=== PATIENT | female | born 1940 | race Caucasian/White ===

== ENCOUNTER 2018-03-31 20:00 | Inpatient (IN) | payer MEDICARE, MEDICAID ==
[~2018-03-31] VITALS: Ht 167.6 cm; Wt 78.0 kg
--- NOTE | 2018-03-31 20:25 | NUR ---
77 yo female bib ambulance from [facility]. patient is alert to self, patient was ds to er bed. patient gowned, placed on desk monitor. skin warm and dry, resp even and unlabored. per ems, patient was sent to [facility] ED for poor appitite and loss of weight over the past few days. awaiting orders from provider, will continue to monitor
--- NOTE | 2018-03-31 20:30 | NUR ---
20g right upper arm started, medicated pt as ordered
[2018-03-31 20:48] LABS: BASOPHILS # (AUTO) 0.3 /CMM (0.0-0.2); BASOPHILS % (AUTO) 2.7 % (0.0-2.0); HEMATOCRIT 36 % (33-45); HEMOGLOBIN 11.7 g/dL (11.5-14.8); LYMPHOCYTES # (AUTO) 3.2 /CMM (0.8-4.8); LYMPHOCYTES % (AUTO) 27.2 % (20.0-44.0); MEAN CORPUSCULAR HEMOGLOBIN 28 PG (26.0-33.0); MEAN CORPUSCULAR HGB CONC 33 g/dl (31.0-36.0); MEAN CORPUSCULAR VOLUME 86 fL (82-100); MONOCYTES # (AUTO) 0.7 /CMM (0.1-1.30); MONOCYTES % (AUTO) 5.8 % (2.0-12.0); NEUTROPHILS # (AUTO) 7.1 /CMM (1.8-8.9); NEUTROPHILS % (AUTO) 59.3 % (43.0-81.0); PLATELET COUNT (AUTO) 295 /CMM (150-450); RDW COEFFICIENT OF VARIATION 16.7 (11.5-15.0); RED BLOOD CELL COUNT(AUTO) 4.12 MIL/uL (4.0-5.2); WHITE BLOOD COUNT (AUTO) 11.9 K/uL (4.3-11.0)
[2018-03-31 20:59] LABS: CALCIUM, SERUM 9.1 mg/dL (8.5-10.1); CARBON DIOXIDE 27 mmol/L (21-32); CHLORIDE 104 mmol/L (98-107); GLUCOSE 137 mg/dL (74-106); POTASSIUM 4.8 mmol/L (3.5-5.1); SODIUM SERUM 137 mmol/L (136-145); UREA NITROGEN, BLOOD 36 mg/dL (7-18)
[2018-03-31 21:04] LABS: ALANINE AMINOTRANSFERASE 15 U/L (12-78); ALBUMIN 2.7 g/dL (3.4-5.0); ALKALINE PHOSPHATASE 70 U/L (46-116); ASPARTATE AMINOTRANSFERASE 13 U/L (15-37); BILIRUBIN,DIRECT 0.1 mg/dL (0.0-0.2); BILIRUBIN,TOTAL 0.2 mg/dL (0.2-1.0); LIPASE 183 U/L (73-393); TOTAL PROTEIN, SERUM 6.3 g/dL (6.4-8.2)
[2018-03-31 21:09] LABS: INR 0.99 (0.85-1.15)
--- NOTE | 2018-03-31 21:12 | NUR ---
PT ASSIGNED M/S 117-2
[2018-03-31 21:13] LABS: APPEARANCE,URINE SL CLOUDY (CLEAR); BILIRUBIN,URINE NEGATIVE (NEGATIVE); BLOOD, URINE 3+ Ery/uL (NEGATIVE); COLOR,URINE YELLOW (YELLOW); KETONES,URINE NEGATIVE (NEGATIVE); LEUKOCYTE ESTERASE ,URINE 2+ (NEGATIVE); NITRITE, URINE POSITIVE (NEGATIVE); PROTEIN,URINE 3+ mg/dl (NEGATIVE); UGLUCOSE NEGATIVE (NEGATIVE)
[2018-03-31 21:14] LABS: PH,URINE >9.0 (5.0-8.0)
--- NOTE | 2018-03-31 21:21 | NUR ---
CALLED [facility] FOR READ ON CHEST X-RAY. PER HOTLINE READ IS PENDING RESULT
[2018-03-31 21:27] LABS: BACTERIA,URINE Many /HPF (None Seen); RBC,URINE TOO NUMEROUS TO COUN /HPF (0-2); SQUAMOUS EPITHELIAL CELL,UR Moderate /HPF (None Seen)
[2018-03-31] MEDS ORDERED: IV NS 0.9% 1,000 ML BAG IV ONE (21:30)
[2018-03-31] MEDS ORDERED: PIPERACILLIN /TAZOBACTAM 3.375 G in IV D5W 50 ML IV ONE (21:30)
[2018-03-31] MEDS ORDERED: PIPERACILLIN /TAZOBACTAM 3.375 G VIAL IV ONE (21:32)
[2018-03-31] MEDS ORDERED: ACETAMINOPHEN 325 MG TABLET PO PRN (22:00)
[2018-03-31] MEDS ORDERED: MAG HYDROX/AL HYDROX/SIMETH 30 ML UDC PO PRN (22:00)
[2018-03-31] MEDS ORDERED: Z GUARD REMEDY 2 OZ OINT TP PRN (22:00)
[2018-03-31] MEDS ORDERED: ONDANSETRON HCL/PF 4 MG/2 ML VIAL IVP PRN (22:00)
[2018-03-31] MEDS ORDERED: MAGNESIUM HYDROXIDE 30 ML UDC PO PRN (22:00)
[2018-03-31] MEDS ORDERED: ZOLPIDEM TARTRATE 5 MG TABLET PO PRN (22:00)
[2018-03-31 22:10] VITALS: BP 147/60
[2018-03-31] MEDS: IV NS 0.9% 1,000 ML IV PRN (22:22)
--- NOTE | 2018-03-31 22:22 | NUR ---
tranasported pt to ms bed with emt without incident
--- NOTE | 2018-03-31 22:30 | NUR ---
RN NOTE RECEIVED PATIENT FROM ER VIA GURNEY, AWAKE, ORIENTED TO NAME ONLY, CONFUSED, LETHARGIC, DX ALOC, DR AGUILERA IS BY BEDSIDE, NOTIFIED DR AGUILERA THAT PATIENT HAS RASH THROUGHOUT THE BODY, DR AGUILERA STATED" I AM AWARE, I KNOW PATIENT FROM THE FACILITY, NO NEW ORDERS GIVEN AT THIS TIME", ON ROOM AIR, SO2 96%, NO RESPIRATORY DISTRESS NOTED, SINUS RYTHM ON THE MONITOR, NO PAIN OR DISCOMFORT NOTED, UNABLE TO AMBULATE, LEFT HAND 18 GAUGE NOTED, WITH ONGOING IF FLUIDS FROM ER, BED BATH PROVIDED, SKIN PICTURES TAKEN AND PLACED IN THE CHART, ALL SAFETY MEASURES TAKEN, BED IN THE LOWEST POSITION, CALL LIGHT WITHIN REACH, BED ALARM IS ACTIVATED, WILL CONTINUE TO MONITOR PATIENT
[2018-04-01] VITALS (8 sets, daily range): BP systolic 148–186; BP diastolic 49–82
[2018-04-01] MEDS: LORAZEPAM INJ 2 MG/ML VIAL IV PRN (01:15)
--- NOTE | 2018-04-01 01:20 | NUR ---
RN NOTE EPISODES OF AGITATION NOTED, HOWEVER PATIENT IS CONFUSED AND NOT ABLE TO EXPLAIN, NOTIFIED DR AGUILERA INPUT NEW OF ATIVAN, ORDER WAS CARRIED OUT, WILL CONTINUE TO MONITOR PATIENT
[2018-04-01] MEDS ORDERED: ACET325T53 PO (02:11)
[2018-04-01] MEDS ORDERED: LACT1CAP61 PO (02:40)
[2018-04-01] MEDS ORDERED: ATOR40TA PO (02:40)
[2018-04-01] MEDS ORDERED: LOSA50TA21 PO (02:41)
[2018-04-01] MEDS ORDERED: DONE5TAB34 PO (02:41)
[2018-04-01] MEDS ORDERED: CYAN1TAB17 PO (02:41)
[2018-04-01] MEDS ORDERED: DOCU250C14 PO (02:41)
[2018-04-01] MEDS ORDERED: CLON0.5T12 PO (02:41)
[2018-04-01] MEDS ORDERED: ERGO500040 PO (02:41)
[2018-04-01] MEDS ORDERED: LEVO125T8 PO (02:41)
[2018-04-01] MEDS ORDERED: NEOM28.43 TP (03:16)
[2018-04-01] MEDS ORDERED: MULT1TAB73 PO (03:16)
[2018-04-01] MEDS ORDERED: VALP250S3 PO (03:16)
[2018-04-01] MEDS ORDERED: METF10004 PO (03:16)
[2018-04-01] MEDS ORDERED: NYST5ORA TOP (03:16)
[2018-04-01] MEDS ORDERED: MAG30ORA PO (03:16)
[2018-04-01] MEDS ORDERED: TRAZ-182 PO (03:16)
[2018-04-01] MEDS ORDERED: POLY17PO4 PO (03:16)
[2018-04-01] MEDS ORDERED: THIA100T70 PO (03:16)
[2018-04-01] MEDS ORDERED: RISP1SOL5 PO (03:16)
[2018-04-01] MEDS ORDERED: MAGN400O6 PO (03:16)
[2018-04-01 06:23] LABS: BASOPHILS % (AUTO) 0.5 % (0.0-2.0); EOSINOPHILS % (AUTO) 6.4 % (0.0-6.0); HEMATOCRIT 35 % (33-45); HEMOGLOBIN 11.3 g/dL (11.5-14.8); LYMPHOCYTES # (AUTO) 2.5 /CMM (0.8-4.8); LYMPHOCYTES % (AUTO) 25.3 % (20.0-44.0); MEAN CORPUSCULAR HEMOGLOBIN 29 PG (26.0-33.0); MEAN CORPUSCULAR HGB CONC 32 g/dl (31.0-36.0); MEAN CORPUSCULAR VOLUME 89 fL (82-100); MONOCYTES # (AUTO) 0.6 /CMM (0.1-1.30); MONOCYTES % (AUTO) 5.6 % (2.0-12.0); NEUTROPHILS # (AUTO) 6.1 /CMM (1.8-8.9); NEUTROPHILS % (AUTO) 62.2 % (43.0-81.0); PLATELET COUNT (AUTO) 293 /CMM (150-450); RDW COEFFICIENT OF VARIATION 17.8 (11.5-15.0); RED BLOOD CELL COUNT(AUTO) 3.95 MIL/uL (4.0-5.2); WHITE BLOOD COUNT (AUTO) 9.9 K/uL (4.3-11.0)
[2018-04-01 06:51] LABS: CALCIUM, SERUM 8.2 mg/dL (8.5-10.1); CARBON DIOXIDE 26 mmol/L (21-32); CHLORIDE 107 mmol/L (98-107); CREATININE 0.8 mg/dL (0.6-1.3); GLUCOSE 142 mg/dL (74-106); SODIUM SERUM 141 mmol/L (136-145); UREA NITROGEN, BLOOD 28 mg/dL (7-18)
[2018-04-01 06:57] LABS: MAGNESIUM 1.1 mg/dL (1.8-2.4)
--- NOTE | 2018-04-01 07:00 | NUR ---
RN NOTE CRITICAL LAB VALUE MG 1.1, NOTIFIED DR AGUILERA, AWAITING FOR CALL BACK, WILL ENDORSE TO AM SHIFT TO FOLLOW UP
--- NOTE | 2018-04-01 07:12 | NUR ---
RN NOTE DR AGUILERA CALLED BACK, NEW ORDER OF MG 2G IV GIVEN, WILL ENDORSE TO AVNI TORRES TO CONTINUE PLAN OF CARE
[2018-04-01] MEDS ORDERED: Magnesium 1 GM/2 ML VIAL IV ONE (07:30)
--- NOTE | 2018-04-01 07:30 | NUR ---
PRODUCTION TEAM MANAGER NOTE: RECEIVED PATIENT IN BED, ASLEEP BUT REFUSED TO OPEN HER EYES AND DOES NOT FOLLOW COMMANDS AT THIS TIME. PATIENT WAS INTERMITTENTLY TALKING TO HERSELF. ON SHINGLE CARRIER SR HR= 61. RESPIRATION IS EVEN AND UNLABORED. SATURATING 95% IN ROOM AIR. NO FACIAL GRIMACING. HOB ELEVATED. BED ALARMED AND LOCKED AT ALL TIMES. CALL LIGHT WITHIN REACH. NEEDS ANTICIPATED.
[2018-04-01] MEDS: Magnesium 1GM/D5W 100ML PREMIX 100 ML IV SCH ×4 (08:07→14:52)
[2018-04-01] MEDS ORDERED: CYAN100096 PO (08:15)
[2018-04-01] MEDS ORDERED: NA P133E RC (08:15)
[2018-04-01] MEDS ORDERED: NYST15OI TP (08:15)
[2018-04-01] MEDS ORDERED: NA PHOS,M-B/NA PHOS,DI-BA 1 EA ENEMA RC PRN (10:30)
[2018-04-01] MEDS: CEFTRIAXONE 1 G in IV NS 0.9% 50 ML IV SCH (10:44)
[2018-04-01] MEDS ORDERED: VALPROIC ACID 250 MG/5 ML UDC PO SCH ×2 (10:52→17:00)
[2018-04-01 11:25] LABS: VALPROIC ACID < 3 ug/mL (50-100)
[2018-04-01 11:27] LABS: SERUM AMMONIA < 10 umol/L (11-32)
[2018-04-01] MEDS ORDERED: *INSULIN REGULAR(HUMULIN R)HUM 100 UNIT/ML VIAL SQ PRN (11:30)
[2018-04-01] MEDS ORDERED: DEXTROSE 50%-WATER 50 ML DISP.SYRIN IV PRN (11:30)
[2018-04-01] MEDS: LACTOBACILLUS RHAMNOSUS GG 1 EACH CAP.SPRINK PO SCH ×3 (11:34→17:38)
[2018-04-01] MEDS: BLOOD SUGAR DIAGNOSTIC 1 EACH STRIP VI SCH ×3 (11:35→21:16)
[2018-04-01] MEDS: CYANOCOBALAMIN 500 MCG TABLET PO SCH (11:35)
[2018-04-01] MEDS: THIAMINE HCL 100 MG TABLET PO SCH (11:35)
[2018-04-01] MEDS: INSULIN REGULAR, HUMAN 100 UNIT/ML 3 ML VIAL SQ PRN (12:57)
[2018-04-01] MEDS ORDERED: ACETAMINOPHEN 325 MG TABLET PO SCH (13:00)
[2018-04-01] MEDS: OLANZAPINE 2.5 MG TABLET PO SCH ×2 (17:00→17:38)
[2018-04-01] MEDS ORDERED: risperiDONE LIQUID 1 MG/ML ML PO SCH (17:00)
[2018-04-01] MEDS: clonazePAM 0.5 MG TABLET PO SCH ×2 (17:00→17:38)
[2018-04-01] MEDS: DONEPEZIL 5 MG TABLET PO SCH ×2 (17:00→17:38)
[2018-04-01] MEDS: METFORMIN 500 MG TABLET PO SCH ×2 (17:00→17:38)
[2018-04-01] MEDS: DIVALPROEX SODIUM 125 MG CAP.SPRINK PO SCH ×2 (17:30→17:38)
[2018-04-01] MEDS: NYSTATIN OINT 100000 UNIT/G 15 GM TUBE TP SCH (17:38)
[2018-04-01] MEDS: HYDROCORTISONE OINT 1% 28.35 GM TUBE TP SCH (17:39)
--- NOTE | 2018-04-01 17:48 | NUR ---
[place] OPERATOR NOTE: PATIENT REFUSED TO TAKE HER AFTERNOON MEDICATIONS, INITIALLY SHE TASTED IT, BUT EVENTUALLY PATIENT SPIT OUT THE MEDICATIONS. OFFERED 3X, EXPLAINED RISKS AND BENEFITS, BUT PATIENT STRONGLY REFUSED AND YELLED AT THE NURSE. Addendum: 04/01/18 at 1750 by NATALIIA MADRIGAL RN INFORMED DR. PEÑA ABOUT IT.
[2018-04-01] MEDS: IV NS 0.9% 1,000 ML IV PRN (18:00)
--- NOTE | 2018-04-01 18:30 | NUR ---
METAL PRODUCTS FABRICATOR ASSEMBLER NOTE: PER DR. PEÑA THE PATIENT NEEDED TO HAVE MEDICAL CLEARANCE IN ORDER TO BE TRANSFER TO [facility] FOR FURTHER BEHAVIORAL MANAGEMENT. AT THIS TIME, MD HAS NO NEW ORDER AND WILL CHECK ON THE PATIENT AGAIN BY TOMORROW.
[2018-04-01] MEDS: ATORVASTATIN 40 MG TABLET PO SCH ×2 (21:16→21:25)
[2018-04-01] MEDS ORDERED: MAGNESIUM HYDROXIDE 30 ML UDC PO SCH (22:00)
[2018-04-01] MEDS ORDERED: TRAZODONE 50 MG TABLET PO SCH (22:00)
[2018-04-01] MEDS ORDERED: MAG HYDROX/AL HYDROX/SIMETH 30 ML UDC PO SCH (22:00)
[2018-04-02] VITALS (9 sets, daily range): BP systolic 142–182; BP diastolic 43–80
[2018-04-02] MEDS: IV NS 0.9% 1,000 ML IV PRN ×2 (06:38→21:06)
--- NOTE | 2018-04-02 06:45 | NUR ---
WOUND CARE CONSULT WOUND CARE RECEIVED CONSULT FOR RASHES ALL OVER THE BODY. WOUND CARE WILL DEFER CONSULT AND ALL TREATMENT PLANS TO SURGICAL TEAM WHO ARE CURRENTLY FOLLOWING. PATIENT WITH ROBY AT 12, RECOMMEND ISOFLEX LOW AIRLOSS SPECIALTY BED, NURSING WILL PLACE WHEN AVAILABLE IN THE UNIT. ALL PRESSURE ULCER PREVENTION MEASURES ARE NOTED TO BE IN PLACE. WILL SEE PRN.
[2018-04-02] MEDS: BLOOD SUGAR DIAGNOSTIC 1 EACH STRIP VI SCH ×4 (06:47→21:04)
--- NOTE | 2018-04-02 06:56 | NUR ---
RN CLOSING NOTE PATIENT WITH NO ACUTE CHANGE IN CONDITION OBSERVED OVERNIGHT. PATIENT IS DEMENTED WITH PSYCHOSIS PRESENTATION, MUMBLES TO SELF AND PERIODICALLY WOULD BE PLEASANT WITH STAFF AND SNAPS TO BEING AGITATED AND COMBATIVE. PATIENT STILL NOTED WITH EPISODE OF AGITATION, NONCOMPLIANCE WITH MEDICATION AND CARE. PATIENT REQUIRING CONSTANT REORIENTATION. PATIENT TURNED AND REPOSITIONED. IVF ORDERED. WOUND TREATMENT ORDERED. NEEDS ANTICIPATED AND MET. SAFETY AND COMFORT ENSURED. BED ALARM IN PLACE. WILL ENDORSE ACCORDINGLY FOR CONTINUITY OF CARE.
[2018-04-02] MEDS: LEVOTHYROXINE SODIUM 125 MCG TABLET PO SCH (07:30)
--- NOTE | 2018-04-02 07:40 | NUR ---
ASSEMBLER CAMPER OPENING NOTE: RECEIVED PATIENT IN BED, ASLEEP BUT REFUSED TO OPEN HER EYES AND DOES NOT FOLLOW COMMANDS AT THIS TIME. PATIENT WAS INTERMITTENTLY TALKING TO HERSELF. ON BUSINESS MANAGEMENT ANALYST SB 51. RESPIRATION IS EVEN AND UNLABORED. NO FACIAL GRIMACING. HOB ELEVATED. BED VIANEY AND IN LOW POSITION.SRX3. CALL LIGHT WITHIN REACH. WILL CONTINUE TO MONITOR.
[2018-04-02] MEDS: DIVALPROEX SODIUM 125 MG CAP.SPRINK PO SCH ×2 (08:32→18:13)
[2018-04-02] MEDS: clonazePAM 0.5 MG TABLET PO SCH ×2 (08:32→18:13)
[2018-04-02] MEDS: OLANZAPINE 2.5 MG TABLET PO SCH (08:32)
[2018-04-02] MEDS: METFORMIN 500 MG TABLET PO SCH ×2 (08:33→17:00)
[2018-04-02] MEDS: THIAMINE HCL 100 MG TABLET PO SCH (08:33)
[2018-04-02] MEDS: LOSARTAN POTASSIUM 50 MG TABLET PO SCH (08:33)
[2018-04-02] MEDS: DONEPEZIL 5 MG TABLET PO SCH ×2 (08:33→18:13)
[2018-04-02] MEDS: NYSTATIN OINT 100000 UNIT/G 15 GM TUBE TP SCH ×2 (08:34→18:14)
[2018-04-02] MEDS: HYDROCORTISONE OINT 1% 28.35 GM TUBE TP SCH ×2 (08:34→18:14)
[2018-04-02] MEDS: CYANOCOBALAMIN 500 MCG TABLET PO SCH (08:43)
[2018-04-02] MEDS: MULTIVITAMINS,THERAGRAN 1 UDTAB TABLET PO SCH (08:43)
[2018-04-02] MEDS: POLYETHYLENE GLYCOL 3350 17 GM POWD.PACK PO SCH (08:43)
[2018-04-02] MEDS: LACTOBACILLUS RHAMNOSUS GG 1 EACH CAP.SPRINK PO SCH ×2 (08:44→17:00)
[2018-04-02] MEDS: DOCUSATE SODIUM LIQ 100 MG/10 ML UDC PO SCH (08:46)
[2018-04-02] MEDS ORDERED: DOCUSATE SODIUM 250 MG CAPSULE PO SCH (09:00)
--- NOTE | 2018-04-02 09:30 | NUR ---
DEICER TESTER NOTES PATIENT REFUSED MEDICATIONS,BUT ABLE TO TAKE SOME.BITING ON THE SPOON,TRYING TO HIT AND BITE WHILE FEEDING AND GIVING MEDS.YELLING AGAINST STAFF.WILL CONTINUE TO MONITOR.
[2018-04-02] MEDS: CEFTRIAXONE 1 G in IV NS 0.9% 50 ML IV SCH (10:19)
--- NOTE | 2018-04-02 16:00 | NUR ---
RN NOTES SEEN BY ,MADE AWARE THAT PATIENT REFUSED BREAKFAST,LUNCH AND DINNER.ONLY EAT 10%.REFUSING MEDICATIONS TOO.AND ALSO MADE AWARE ABOUT BEHAVIOR OF YELLING AND TRYING TO HIT AND SCRATCH WHILE TOUCHING THE PATIENT.SHE SAID SHE WILL CHANGE MEDICATION ROUTE AND WILL FOLLOW UP.CONTINUE TO MONITOR.
--- NOTE | 2018-04-02 19:51 | NUR ---
RN OPENING NOTES RECEIVED REPORT FROM YOLY HOLLY. PATIENT A/A/O X1 W/ CONFUSION. BREATHING EVEN & UNLABORED & TOLERATING ROOM AIR. ON TELE W/ SINUS LEIAS, HR 55. NO RESPIRATORY OR CARDIAC DISTRESS NOTED. LEFT HAND IV #18 INTACT & PATENT W/ DRESSING CDI & IVF NS INFUSING WELL @ 75 ML/HR. NO S/S OF PAIN OR DISCOMFORT @ THIS TIME. SAFETY MEASURES MAINTAINED W/ BED ALARM ON. TURNED & REPOSITIONED FOR COMFORT. WILL CONTINUE TO MONITOR.
[2018-04-02] MEDS ORDERED: OLANZAPINE 5 MG/TAB.RAPDIS PO SCH (20:00)
[2018-04-02] MEDS: ATORVASTATIN 40 MG TABLET PO SCH (21:04)
[2018-04-03] VITALS (8 sets, daily range): BP systolic 145–190; BP diastolic 40–68
--- NOTE | 2018-04-03 07:10 | NUR ---
LEASE OPERATOR OPENING NOTE: RECEIVED PATIENT IN BED, ASLEEP BUT REFUSED TO OPEN HER EYES AND DOES NOT FOLLOW COMMANDS AT THIS TIME. ON MEDICAL FIELD REPRESENTATIVE SB 58. RESPIRATION IS EVEN AND UNLABORED. NO FACIAL GRIMACING. HOB ELEVATED. BED VIANEY AND IN LOW POSITION.SRX3. CALL LIGHT WITHIN REACH. WILL CONTINUE TO MONITOR.
[2018-04-03] MEDS: BLOOD SUGAR DIAGNOSTIC 1 EACH STRIP VI SCH ×4 (08:12→21:05)
[2018-04-03] MEDS: LACTOBACILLUS RHAMNOSUS GG 1 EACH CAP.SPRINK PO SCH ×2 (08:21→16:52)
[2018-04-03] MEDS: DIVALPROEX SODIUM 125 MG CAP.SPRINK PO SCH ×2 (08:21→16:52)
[2018-04-03] MEDS: METFORMIN 500 MG TABLET PO SCH ×2 (08:21→16:52)
[2018-04-03] MEDS: clonazePAM 0.5 MG TABLET PO SCH ×2 (08:21→16:53)
[2018-04-03] MEDS: THIAMINE HCL 100 MG TABLET PO SCH (08:21)
[2018-04-03] MEDS: LEVOTHYROXINE SODIUM 125 MCG TABLET PO SCH (08:21)
[2018-04-03] MEDS: DONEPEZIL 5 MG TABLET PO SCH ×2 (08:21→16:53)
[2018-04-03] MEDS: MULTIVITAMINS,THERAGRAN 1 UDTAB TABLET PO SCH (08:21)
[2018-04-03] MEDS: CYANOCOBALAMIN 500 MCG TABLET PO SCH (08:24)
[2018-04-03] MEDS: LOSARTAN POTASSIUM 50 MG TABLET PO SCH (08:25)
[2018-04-03] MEDS: HYDROCORTISONE OINT 1% 28.35 GM TUBE TP SCH ×2 (08:27→16:55)
[2018-04-03] MEDS: NYSTATIN OINT 100000 UNIT/G 15 GM TUBE TP SCH ×2 (08:27→16:55)
[2018-04-03] MEDS: DOCUSATE SODIUM LIQ 100 MG/10 ML UDC PO SCH (08:40)
[2018-04-03] MEDS: POLYETHYLENE GLYCOL 3350 17 GM POWD.PACK PO SCH (08:40)
[2018-04-03] MEDS ORDERED: CLONIDINE HCL 0.1MG/24H PTWK 1 EA PATCH TD SCH (09:30)
--- NOTE | 2018-04-03 09:30 | NUR ---
MANAGER STAFFING NOTES SEEN BY ,MADE AWARE ABOUT PATIENT EATING PATTERN AND ELEVATED BLOOD PRESSURE GOT NEW ORDERS.ALSO MADE AWARE THAT LABS NOT DONE FOR PREVIOUS DAYS,ON IV ATB FOR UTI.GOT NEW LAB ORDERS FOR 04/04/18.WILL CONTINUE TO MONITOR.
[2018-04-03] MEDS: CEFTRIAXONE 1 G in IV NS 0.9% 50 ML IV SCH (09:44)
--- NOTE | 2018-04-03 12:15 | NUR ---
VOCATIONAL REHABILITATION TECHNICIAN NOTES SEEN BY UPDATED PATIENT CONDITION.MADE AWARE THAT SHE IS ABLE TO TAKE 35% AT BREAKFAST.SHE TOLD SHE IS GOING TO MAKE SOME MEDICATION CHANGES AND LET HER KNOW HOW IT WORKS FOR PATIENT.FAMILY WAS AT BEDSIDE. IS ABLE TO TALKED TO THE DAUGHTER.ANSWERED ALL HER QUESTIONS AND CONCERNS.WILL CONTINUE TO MONITOR.
[2018-04-03] MEDS: OLANZAPINE 5 MG/TAB.RAPDIS PO SCH ×2 (12:37→21:01)
[2018-04-03] MEDS: INSULIN REGULAR, HUMAN 100 UNIT/ML 3 ML VIAL SQ PRN (13:03)
--- NOTE | 2018-04-03 17:00 | NUR ---
CASINO HOST NOTES GOT CALL FROM ,UPDATED PATIENT CONDITION,SHE IS MORE AWAKE AND TALKING TO HERSELF,REMOVING CLOTHES .SHE DID EAT 100% AT DINNER. SAID SHE WILL PUT NEW ORDER FOR PRN ZYPREXA FOR BEHAVIOR.WILL CONTINUE TO MONITOR.
[2018-04-03] MEDS ORDERED: OLANZAPINE 2.5 MG TABLET PO PRN (17:30)
--- NOTE | 2018-04-03 18:58 | NUR ---
POLE TESTER NOTES ENDORSED TO PM NURSE TO FOLLOW UP WITH DVT PROPHYLAXIS
--- NOTE | 2018-04-03 18:59 | NUR ---
INVOICING SPECIALIST SHIFT END NOTE: PATIENT ASLEEP , ON CAPACITOR TESTER SR 64. RESPIRATION IS EVEN AND UNLABORED. NO FACIAL GRIMACING. HOB ELEVATED. BED VIANEY AND IN LOW POSITION.SRX3. CALL LIGHT WITHIN REACH.FAMILY EXPRESSED CONCERN TO . FAMILY STATED"SHE LOST WEIGHT MAY BE BECAUSE SHE MIGHT HAVE SOME KIND OF CANCER "THEY WANT TO KNOW ABOUT THEIR CONCERN. ENDORSED TO PM NURSE TO FOLLOW UP WITH PRIMARY DR TOMORROW.ENDORSED TO PM NURSE FOR MEREDITH.
[2018-04-03] MEDS: IV NS 0.9% 1,000 ML IV PRN (19:01)
--- NOTE | 2018-04-03 19:43 | NUR ---
DIGITAL COMMUNITY MANAGER NOTES RECEIVED PT ON BED. A/OX1. ON ROOM AIR SATURATING WELL. ON TELE MONITOR SB 55. IV ACCESS ON LEFT HAND #18 NS @75CC/HR RUNNING WELL. PATENT AND INTACT. HEAD OF BED ELEVATED. SIDE RAILS UPX4. BED ALARM ON. CALL LIGHT WITHIN REACH. WILL CONTINUE TO MONITOR PT CLOSELY.
[2018-04-03] MEDS: ATORVASTATIN 40 MG TABLET PO SCH (21:01)
[2018-04-04] VITALS (7 sets, daily range): BP systolic 137–172; BP diastolic 53–71
[2018-04-04 06:31] LABS: BASOPHILS % (AUTO) 0.3 % (0.0-2.0); EOSINOPHILS % (AUTO) 8.2 % (0.0-6.0); HEMATOCRIT 33 % (33-45); HEMOGLOBIN 10.7 g/dL (11.5-14.8); LYMPHOCYTES # (AUTO) 2.2 /CMM (0.8-4.8); LYMPHOCYTES % (AUTO) 23.6 % (20.0-44.0); MEAN CORPUSCULAR HEMOGLOBIN 29 PG (26.0-33.0); MEAN CORPUSCULAR HGB CONC 33 g/dl (31.0-36.0); MEAN CORPUSCULAR VOLUME 89 fL (82-100); MONOCYTES # (AUTO) 0.6 /CMM (0.1-1.30); MONOCYTES % (AUTO) 6.1 % (2.0-12.0); NEUTROPHILS # (AUTO) 5.7 /CMM (1.8-8.9); NEUTROPHILS % (AUTO) 61.8 % (43.0-81.0); PLATELET COUNT (AUTO) 267 /CMM (150-450); RDW COEFFICIENT OF VARIATION 17.5 (11.5-15.0); RED BLOOD CELL COUNT(AUTO) 3.67 MIL/uL (4.0-5.2); WHITE BLOOD COUNT (AUTO) 9.3 K/uL (4.3-11.0)
[2018-04-04 06:47] LABS: CALCIUM, SERUM 7.7 mg/dL (8.5-10.1); CARBON DIOXIDE 27 mmol/L (21-32); CHLORIDE 109 mmol/L (98-107); CREATININE 0.6 mg/dL (0.6-1.3); GLUCOSE 120 mg/dL (74-106); MAGNESIUM 1.3 mg/dL (1.8-2.4); PHOSPHORUS 2.7 mg/dL (2.5-4.9); POTASSIUM 3.4 mmol/L (3.5-5.1); SODIUM SERUM 142 mmol/L (136-145); UREA NITROGEN, BLOOD 14 mg/dL (7-18)
--- NOTE | 2018-04-04 07:22 | NUR ---
CROSSCUTTER NOTES NO ACUTE CHANGES NOTED DURING THE SHIFT. PROVIDED COMFORT AND SAFETY. DUE MEDS GIVEN. HEAD OF BED ELEVATED. SIDE RAILS UP. CALL LIGHT WITHIN REACH. IV ACCESS INTACT. ENDORSED TO THE AM NURSE FOR CONTINUITY CARE.
--- NOTE | 2018-04-04 07:40 | NUR ---
FAMILY COUNSELOR NOTE: RECEIVED PATIENT IN BED, ASLEEP, BUT AROUSABLE TO TACTILE STIMULI. RESPIRATION IS EVEN AND UNLABORED SATURATING 100% IN ROOM AIR. NO FACIAL GRIMACING AND NO MOANING NOTED. HOB ELEVATED @ 30 DEGREES. AFEBRILE. FEEDER. BED ALARMED AND LOCKED AT ALL TIMES. ON CRM TECHNICAL LEAD, SR HR= 60. CALL LIGHT WITHIN REACH. NEEDS ANTICIPATED.
[2018-04-04] MEDS: BLOOD SUGAR DIAGNOSTIC 1 EACH STRIP VI SCH ×4 (07:56→21:45)
[2018-04-04] MEDS: LEVOTHYROXINE SODIUM 125 MCG TABLET PO SCH (08:32)
[2018-04-04] MEDS: DOCUSATE SODIUM LIQ 100 MG/10 ML UDC PO SCH (09:00)
[2018-04-04] MEDS ORDERED: POTASSIUM CHLORIDE 20 MEQ TAB.PRT.SR PO ONE (09:30)
[2018-04-04] MEDS: DONEPEZIL 5 MG TABLET PO SCH ×2 (09:47→17:00)
[2018-04-04] MEDS: LOSARTAN POTASSIUM 50 MG TABLET PO SCH (09:48)
[2018-04-04] MEDS: clonazePAM 0.5 MG TABLET PO SCH (09:48)
[2018-04-04] MEDS: DIVALPROEX SODIUM 125 MG CAP.SPRINK PO SCH (09:48)
[2018-04-04] MEDS: LACTOBACILLUS RHAMNOSUS GG 1 EACH CAP.SPRINK PO SCH ×2 (09:48→17:00)
[2018-04-04] MEDS: METFORMIN 500 MG TABLET PO SCH ×2 (09:48→17:00)
[2018-04-04] MEDS: MULTIVITAMINS,THERAGRAN 1 UDTAB TABLET PO SCH (09:49)
[2018-04-04] MEDS: POLYETHYLENE GLYCOL 3350 17 GM POWD.PACK PO SCH (09:49)
[2018-04-04] MEDS: CYANOCOBALAMIN 500 MCG TABLET PO SCH (09:49)
[2018-04-04] MEDS: THIAMINE HCL 100 MG TABLET PO SCH (09:49)
[2018-04-04] MEDS: OLANZAPINE 5 MG/TAB.RAPDIS PO SCH ×2 (09:50→21:44)
[2018-04-04] MEDS: NYSTATIN OINT 100000 UNIT/G 15 GM TUBE TP SCH ×2 (09:52→17:59)
[2018-04-04] MEDS: HYDROCORTISONE OINT 1% 28.35 GM TUBE TP SCH ×2 (09:53→17:59)
[2018-04-04] MEDS: CEFTRIAXONE 1 G in IV NS 0.9% 50 ML IV SCH (09:57)
[2018-04-04] MEDS: IV NS 0.9% 1,000 ML IV PRN (09:57)
[2018-04-04] MEDS: Magnesium 1GM/D5W 100ML PREMIX 100 ML IV SCH ×4 (10:43→14:05)
[2018-04-04 11:45] LABS: IRON, SERUM 29 ug/dl (50-175); TOTAL IRON BINDING CAPACITY 127 ug/dl (250-450)
--- NOTE | 2018-04-04 12:29 | NUR ---
MS RN NOTE: SEEN BY DR. PEÑA AT THE BEDSIDE AND PER MD, SHE WANTED THE PATIENT TO CONTINUE TAKING HER PSYCHOTROPIC MEDICATIONS IN ORDER TO MANAGE THE PATIENT'S BEHAVIOR. PER MD, SHE WILL MAKE SOME ADJUSTMENTS ON THE DOSAGES OF THE PATIENT'S MEDICATIONS.
--- NOTE | 2018-04-04 17:31 | NUR ---
MS RN NOTE: RECEIVED A CALL FROM DR. PEÑA AND UPDATED HER THAT THE PATIENT WAS STILL ASLEEP AND VERY DROWSY AT THIS TIME. PER MD, OK TO HOLD ALL ROUTINE PSYCHOTROPIC MEDICATIONS FOR NOW AND SHE WILL EVALUATE THE PATIENT'S CONDITION AGAIN. IF PATIENT STARTS TO MANIFEST SOME BEHAVIOR, OK TO GIVE ATIVAN OR ZYPREXA PRN.
--- NOTE | 2018-04-04 19:51 | NUR ---
MS RN NOTE: PATIENT IN BED, SOUNDLY ASLEEP. RESPIRATION EVEN AND UNLABORED. ON STABLE CONDITION. BS @1700= 144 AND IT WAS NOT COVERED WITH THE INSULIN SLIDING SCALE DUE TO THE PATIENT'S REFUSAL TO EAT HER MEALS. DR. PEÑA WAS AWARE ABOUT IT. REPORT GIVEN TO PM SHIFT NURSE FOR CONTINUITY OF CARE INCLUDING THE ORDER FOR OCCULT BLOOD STOOL. PATIENT HAD NO BOWEL MOVEMENT DURING THE SHIFT. CALL LIGHT WITHIN REACH.
--- NOTE | 2018-04-04 20:00 | NUR ---
RN INITIAL NOTES RECEIVED PT ON BED. A/OX1. ON ROOM AIR SATURATING WELL. IV ACCESS ON LEFT HAND #18 NS @75CC/HR RUNNING WELL. PATENT AND INTACT. HEAD OF BED ELEVATED. SIDE RAILS UPX4. BED ALARM ON. CALL LIGHT WITHIN REACH. WILL CONTINUE TO MONITOR PT CLOSELY.
[2018-04-04] MEDS: ATORVASTATIN 40 MG TABLET PO SCH (21:44)
[2018-04-05] VITALS (7 sets, daily range): BP systolic 138–193; BP diastolic 42–63
[2018-04-05] MEDS: IV NS 0.9% 1,000 ML IV PRN ×2 (03:49→19:49)
--- NOTE | 2018-04-05 06:45 | NUR ---
RN CLOSING NOTES NO ACUTE CHANGES NOTED DURING THE SHIFT. PROVIDED COMFORT AND SAFETY. DUE MEDS GIVEN. HEAD OF BED ELEVATED. SIDE RAILS UP. CALL LIGHT WITHIN REACH. IV ACCESS INTACT WITH FLUIDS INFUSING . ENDORSED TO THE AM NURSE FOR CONTINUITY CARE.
[2018-04-05] MEDS ORDERED: ERGOCALCIFEROL (VITAMIN D 2) 50,000 UNIT CAPSULE PO SCH (07:00)
[2018-04-05 07:08] LABS: CALCIUM, SERUM 7.8 mg/dL (8.5-10.1); CARBON DIOXIDE 25 mmol/L (21-32); CHLORIDE 108 mmol/L (98-107); CREATININE 0.6 mg/dL (0.6-1.3); GLUCOSE 104 mg/dL (74-106); MAGNESIUM 1.9 mg/dL (1.8-2.4); POTASSIUM 3.7 mmol/L (3.5-5.1); SODIUM SERUM 140 mmol/L (136-145); UREA NITROGEN, BLOOD 11 mg/dL (7-18)
[2018-04-05] MEDS: LEVOTHYROXINE SODIUM 125 MCG TABLET PO SCH (07:23)
[2018-04-05] MEDS: BLOOD SUGAR DIAGNOSTIC 1 EACH STRIP VI SCH ×4 (07:44→21:39)
--- NOTE | 2018-04-05 07:47 | NUR ---
MS RN NOTES: RECEIVED PT ON BED ASLEEP WITH NO APPARENT DISTRESS NOTED. NO FACIAL GRIMACING OR ANY SIGNS OF PAIN NOTED. ON ROOM AIR, SATURATING WELL. NO SOB NOTED. IV ON LEFT HAND #18 INTACT AND PATENT, WITH IVF NS RUNNING AT 75ML/HR, INFUSING WELL. KEPT CLEAN, DRY AND COMFORTABLE. SIDE RAILS UP. BED ALARM ON. BED LOCKED AND IN LOWEST POSITION. CALL LIGHT PLACED WITHIN REACH. WILL CONTINUE TO MONITOR PT.
[2018-04-05] MEDS: DOCUSATE SODIUM LIQ 100 MG/10 ML UDC PO SCH ×2 (08:11→09:10)
[2018-04-05] MEDS: CYANOCOBALAMIN 500 MCG TABLET PO SCH (08:12)
[2018-04-05] MEDS: OLANZAPINE 5 MG/TAB.RAPDIS PO SCH ×2 (08:12→20:01)
[2018-04-05] MEDS: POLYETHYLENE GLYCOL 3350 17 GM POWD.PACK PO SCH (08:12)
[2018-04-05] MEDS: LACTOBACILLUS RHAMNOSUS GG 1 EACH CAP.SPRINK PO SCH ×2 (08:12→16:50)
[2018-04-05] MEDS: MULTIVITAMINS,THERAGRAN 1 UDTAB TABLET PO SCH (08:12)
[2018-04-05] MEDS: METFORMIN 500 MG TABLET PO SCH ×2 (08:12→16:50)
[2018-04-05] MEDS: LOSARTAN POTASSIUM 50 MG TABLET PO SCH (08:13)
[2018-04-05] MEDS: DONEPEZIL 5 MG TABLET PO SCH ×2 (08:14→16:50)
[2018-04-05] MEDS: THIAMINE HCL 100 MG TABLET PO SCH (08:46)
[2018-04-05] MEDS: NYSTATIN OINT 100000 UNIT/G 15 GM TUBE TP SCH ×2 (09:08→16:51)
[2018-04-05] MEDS: HYDROCORTISONE OINT 1% 28.35 GM TUBE TP SCH ×2 (09:09→16:52)
[2018-04-05] MEDS: CEFTRIAXONE 1 G in IV NS 0.9% 50 ML IV SCH (09:15)
--- NOTE | 2018-04-05 12:26 | NUR ---
MS RN NOTES: REPORT GIVEN TO HIWOT PISANO AT [facility]
[2018-04-05] MEDS ORDERED: CLONIDINE HCL 0.1 MG TABLET PO ONE (15:00)
--- NOTE | 2018-04-05 15:43 | NUR ---
MS RN NOTES: PATIENT IS READY TO BE DISCHARGED TO [facility], HOWEVER, AMBULANCE CREW DID NOT TAKE THE PT BECAUSE HER BP WAS 191/86. RECHECKED BP ON DIFFERENT SITE USING DIFFERENT MACHINE BUT BP STILL HIGH. DR. MORENO MADE AWARE, ORDERED CLONIDINE 0.1MG PO X1. ORDER CARRIED OUT AND GIVEN. WILL CONTINUE TO MONITOR PT.
--- NOTE | 2018-04-05 16:00 | NUR ---
MS RN NOTES: BP RECHECKED 138/60.
--- NOTE | 2018-04-05 17:56 | NUR ---
MS RN NOTES: BP WENT UP AGAIN TO 167/81. DR. MORENO MADE AWARE, ORDERED AMLODIPINE 10MG PO X1. ORDER CARRIED OUT AND DONE.
--- NOTE | 2018-04-05 18:00 | NUR ---
MS RN NOTES: PATIENT HAD EPISODES OF AGITATION, PRN ATIVAN GIVEN. BP STILL HIGH 162/81. WILL RECHECK BP AFTER 30MINS.
[2018-04-05] MEDS: LORAZEPAM INJ 2 MG/ML VIAL IV PRN (18:02)
[2018-04-05] MEDS ORDERED: hydrALAZINE HCL 25 MG TABLET PO PRN (18:30)
[2018-04-05] MEDS ORDERED: AMLODIPINE BESYLATE 10 MG TABLET PO ONE (18:30)
--- NOTE | 2018-04-05 18:30 | NUR ---
MS RN NOTES: BP RECHECKED 172/80. AMLODIPINE 10MG PO X1 GIVEN. PT STILL HAS EPISODES OF CONFUSION AND AGITATION. ON ROOM AIR, SATURATING WELL. NO SOB NOTED. NO FACIAL GRIMACING OR ANY SIGNS OF PAIN NOTED. KEPT CLEAN, DRY AND COMFORTABLE. SIDE RAILS UP. BED ALARM ON. BED LOCKED AND IN LOWEST POSITION. WILL ENDORSE TO [employer] WEBSPHERE PORTAL DEVELOPER FOR CONTINUITY OF CARE.
--- NOTE | 2018-04-05 19:30 | NUR ---
MS RN NOTES RECEIVED PT ON BED. A/OX1 CONFUSED AND AGITATED. ON ROOM AIR SATURATING WELL. IV ACCESS ON LEFT HAND #18 SALINE LOCK . IV ACCESS PATENT AND INTACT. HEAD OF BED ELEVATED. SIDE RAILS UP. CALL LIGHT WITHIN REACH. BED ALARM ON. WILL CONTINUE TO MONITOR PT CLOSELY.
--- NOTE | 2018-04-05 19:32 | NUR ---
MS RN NOTES PT SEEN BY DR MORENO. HOLD DISCHARGE FOR NOW.
[2018-04-05] MEDS: ATORVASTATIN 40 MG TABLET PO SCH (21:37)
--- NOTE | 2018-04-05 22:51 | NUR ---
MS RN NOTES PT CONFUSED. TRYING TO GET OUT OF BED, REMOVING GOWN. PT SHOUTING. BED ALARM ON. SIDE RAILS UP X3. PT PLACED CLOSE TO NURSES STATION. WILL CONTINUE TO MONITOR PT BEHAVIOR CLOSELY
[2018-04-06 02:00] VITALS: BP 157/84
[2018-04-06] MEDS: LORAZEPAM INJ 2 MG/ML VIAL IV PRN (02:06)
--- NOTE | 2018-04-06 02:09 | NUR ---
MS RN NOTES PT AGITATED, SHOUTING ATIVAN .5MG PRN GIVEN.
[2018-04-06 04:00] VITALS: BP 157/84
--- NOTE | 2018-04-06 06:20 | NUR ---
MS RN NOTES NO ACUTE CHANGES NOTED DURING THE SHIFT. PROVIDED COMFORT AND SAFETY. PT REPOSITIONED Q2H. WOUND CARE DONE. DUE MEDS GIVEN. WILL ENDORSE TO THE AM NURSE FOR CONTINUITY OF CARE.
--- NOTE | 2018-04-06 07:10 | NUR ---
MS/RN INITIAL NOTES RECEIVED PT IN BED, ASLEEP, AROUSABLE TO NAME AND LIGHT TOUCH. TOELRATING ROOM AIR WELL. WITH INTACT RHAND SL. NO SIGNS OF INFECTION NOTED. SAFETY MEASURES AND ASPIRATION PRECAUTION IN PLACED. BED AIN LOW AND LOCKED POSITION. BED ALARM ON. CALL LIGHT WITHIN REACH. WILL CONT TO MONITOR
[2018-04-06] MEDS: LEVOTHYROXINE SODIUM 125 MCG TABLET PO SCH (07:40)
[2018-04-06] MEDS: BLOOD SUGAR DIAGNOSTIC 1 EACH STRIP VI SCH ×2 (07:45→11:30)
[2018-04-06 08:00] VITALS: BP 123/51
[2018-04-06] MEDS: POLYETHYLENE GLYCOL 3350 17 GM POWD.PACK PO SCH (08:27)
[2018-04-06] MEDS: LACTOBACILLUS RHAMNOSUS GG 1 EACH CAP.SPRINK PO SCH (08:30)
[2018-04-06] MEDS: CYANOCOBALAMIN 500 MCG TABLET PO SCH (08:30)
[2018-04-06] MEDS: THIAMINE HCL 100 MG TABLET PO SCH (08:30)
[2018-04-06] MEDS: METFORMIN 500 MG TABLET PO SCH (08:30)
[2018-04-06] MEDS: OLANZAPINE 5 MG/TAB.RAPDIS PO SCH (08:30)
[2018-04-06] MEDS: DONEPEZIL 5 MG TABLET PO SCH (08:30)
[2018-04-06] MEDS: LOSARTAN POTASSIUM 50 MG TABLET PO SCH (08:31)
[2018-04-06] MEDS: MULTIVITAMINS,THERAGRAN 1 UDTAB TABLET PO SCH (08:31)
[2018-04-06] MEDS: HYDROCORTISONE OINT 1% 28.35 GM TUBE TP SCH (08:54)
[2018-04-06] MEDS: NYSTATIN OINT 100000 UNIT/G 15 GM TUBE TP SCH (08:54)
[2018-04-06] MEDS: CEFTRIAXONE 1 G in IV NS 0.9% 50 ML IV SCH (09:20)
--- NOTE | 2018-04-06 12:00 | NUR ---
RN NOTES PT'S JS=023/43; HR-49; NOTIFIED MD ABOUT PT'S BP AND HR. CLARIFIED IF OK TO GIVE HYDRALAZINE. PER MD, OK TO GIVE ONE TIME HYDRALAZINE 20MG IVP. ORDERS NOTED AND CARRIED OUT
--- NOTE | 2018-04-06 12:30 | NUR ---
RN NOTES RECHECKED PT'S BP-169/51 HR-53; HYDRALAZINE 20MG IVP GIVEN. WILL CONT TO MONITOR
[2018-04-06] MEDS ORDERED: hydrALAZINE HCL IV 20 MG VIAL IV STA (12:39)
[2018-04-06 12:44] VITALS: BP 169/51
--- NOTE | 2018-04-06 13:15 | NUR ---
RN NOTES REPORT GIVEN TO AVIN PISANO
--- NOTE | 2018-04-06 13:25 | NUR ---
RN NOTES D[facility] VIA [facility]ULANCE IN STABLE CONDITION. NO SOB NOTED. ALERT AND VERBALLY RESPONSIVE. REPORT GIVEN TO EMT. RHAND IV D/C, PRESSURE DRESSING IN PLACED. NO SIGNS OF BLEEDING NOTED. SAFETY MEASURES OBSERVED AT ALL TIMES. ALL NEEDS ANTICIPATED. D/C INSTRUCTIONS GIVEN TO EMT AND AVNI PISANO([facility]). D/C
== END 2018-04-06 13:25 | DRG 689 ==
LOC: ER 20:19 → MEDSG1 21:56 → TELE1 22:27 → MEDSG1 04-04 09:30
PROVIDERS: ADMIT Internal Medicine; ATTEND Internal Medicine
DX: N39.0 Urinary tract infection, site not specified (principal); N17.0 Acute kidney failure with tubular necrosis; G92 Toxic encephalopathy; F05 Delirium due to known physiological condition; E86.0 Dehydration; E11.9 Type 2 diabetes mellitus without complications; B96.20 Unspecified Escherichia coli [E. coli] as the cause of diseases classified elsewhere; E78.5 Hyperlipidemia, unspecified; R13.10 Dysphagia, unspecified; F01.50 Vascular dementia, unspecified severity, without behavioral disturbance, psychotic disturbance, mood disturbance, and anxiety; F32.9 Major depressive disorder, single episode, unspecified; E03.9 Hypothyroidism, unspecified; F41.9 Anxiety disorder, unspecified; F29 Unspecified psychosis not due to a substance or known physiological condition; L30.9 Dermatitis, unspecified; H73.899 Other specified disorders of tympanic membrane, unspecified ear; F25.0 Schizoaffective disorder, bipolar type; S90.821A Blister (nonthermal), right foot, initial encounter; X58.XXXA Exposure to other specified factors, initial encounter; Y93.9 Activity, unspecified; Y92.129 Unspecified place in nursing home as the place of occurrence of the external cause; Z79.84 Long term (current) use of oral hypoglycemic drugs; F39 Unspecified mood [affective] disorder; I10 Essential (primary) hypertension; L30.4 Erythema intertrigo
CPT/HCPCS: 36415; 70450-TC; 71045-TC; 80048-TC; 80076-TC; 80164-TC; 81000-TC; 82140-TC; 82962-TC; 83540-TC; 83690-TC; 83735-TC; 84100-TC; 84443-TC; 85025-TC; 85730-TC; 87081-TC; 87086-TC; 87186-TC; A4216; A4606; J0360; J0696; J1815; J2060; J2543; J3475; J7030; J7060; Z7610

== ENCOUNTER 2018-05-18 09:33 | Inpatient (IN) | payer MEDICARE, MEDICAID ==
[~2018-05-18] VITALS: Ht 167.6 cm; Wt 81.6 kg
[~2018-05-18 09:33] MED LIST: ACET325T53 PO; ATOR40TA PO; CLON0.5T12 PO; CYAN100096 PO; DOCU250C14 PO; DONE5TAB34 PO; ERGO500040 PO; LACT1CAP61 PO; LEVO125T8 PO; LOSA50TA21 PO; MAG30ORA PO; MAGN400O6 PO; METF-442 PO; MULT1TAB73 PO; NA P133E RC; NYST15OI TP; POLY17PO4 PO; RISP1SOL5 PO; THIA100T70 PO; TRAZ-182 PO; VALP250S3 PO
--- NOTE | 2018-05-18 09:35 | NUR ---
BIB PRIVATE EMT FROM [facility]ARE [facility], C/O ABDOMINAL PAIN PER DAUGHTER. DAUGHTER IS CONCERNED ABOUT HER WEIGHT LOSS AND KIDNEY STENT. PATIENT IS A/OX 1-2. BREATHING EVEN AND UNLABORED. NO SOB, NAD, VITALS STABLE. SAFETY AND COMFORT MEASURES IN PLACE. AWAITING MD ORDERS.
[2018-05-18] MEDS ORDERED: IV NS 0.9% 500 ML BAG IV ONE (10:00)
--- NOTE | 2018-05-18 10:00 | NUR ---
NEW IV STARTED ON RAC, 20G. BLOOD DRAWN AND SENT TO LAB.
[2018-05-18 10:04] LABS: BASOPHILS # (AUTO) 0.1 /CMM (0.0-0.2); BASOPHILS % (AUTO) 1.5 % (0.0-2.0); EOSINOPHILS % (AUTO) 4.8 % (0.0-6.0); HEMATOCRIT 36 % (33-45); HEMOGLOBIN 11.8 g/dL (11.5-14.8); LYMPHOCYTES # (AUTO) 2.3 /CMM (0.8-4.8); LYMPHOCYTES % (AUTO) 29.3 % (20.0-44.0); MEAN CORPUSCULAR HGB CONC 33 g/dl (31.0-36.0); MEAN CORPUSCULAR VOLUME 87 fL (82-100); MONOCYTES # (AUTO) 0.6 /CMM (0.1-1.30); MONOCYTES % (AUTO) 7.2 % (2.0-12.0); NEUTROPHILS # (AUTO) 4.3 /CMM (1.8-8.9); NEUTROPHILS % (AUTO) 57.2 % (43.0-81.0); PLATELET COUNT (AUTO) 262 /CMM (150-450); RDW COEFFICIENT OF VARIATION 15.9 (11.5-15.0); RED BLOOD CELL COUNT(AUTO) 4.11 MIL/uL (4.0-5.2); WHITE BLOOD COUNT (AUTO) 7.8 K/uL (4.3-11.0)
[2018-05-18 10:18] LABS: INR 0.92 (0.85-1.15)
[2018-05-18 10:21] LABS: TROPONIN I < 0.017 ng/mL (0.00-0.056)
[2018-05-18 10:26] LABS: ALANINE AMINOTRANSFERASE 14 U/L (12-78); ALBUMIN 2.8 g/dL (3.4-5.0); ALKALINE PHOSPHATASE 72 U/L (46-116); ASPARTATE AMINOTRANSFERASE 11 U/L (15-37); BILIRUBIN,DIRECT 0.1 mg/dL (0.0-0.2); BILIRUBIN,TOTAL 0.2 mg/dL (0.2-1.0); TOTAL PROTEIN, SERUM 6.3 g/dL (6.4-8.2)
[2018-05-18 10:39] LABS: CALCIUM, SERUM 8.8 mg/dL (8.5-10.1); CARBON DIOXIDE 28 mmol/L (21-32); CHLORIDE 106 mmol/L (98-107); CREATININE 0.9 mg/dL (0.6-1.3); GLUCOSE 143 mg/dL (74-106); POTASSIUM 4.2 mmol/L (3.5-5.1); SODIUM SERUM 143 mmol/L (136-145); UREA NITROGEN, BLOOD 25 mg/dL (7-18)
--- NOTE | 2018-05-18 10:49 | NUR ---
URINE OBTAINED VIA STRAIGHT CATH AND SENT TO LAB PER MD ORDERS.
--- NOTE | 2018-05-18 10:51 | NUR ---
PATIENT TAKEN TO CT VIA STRETCHER.
[2018-05-18 10:56] LABS: APPEARANCE,URINE Cloudy (CLEAR); BILIRUBIN,URINE Negative (NEGATIVE); BLOOD, URINE Large Ery/uL (NEGATIVE); KETONES,URINE Negative (NEGATIVE); LEUKOCYTE ESTERASE ,URINE Small (NEGATIVE); NITRITE, URINE Negative (NEGATIVE); PH,URINE 8.5 (5.0-8.0); PROTEIN,URINE >=300 mg/dl (NEGATIVE); UGLUCOSE Negative (NEGATIVE); UROBILINOGEN,URINE 0.2 EU/dL (0.2)
[2018-05-18 10:59] LABS: COLOR,URINE Dark Yellow (YELLOW)
--- NOTE | 2018-05-18 11:02 | NUR ---
PATIENT RETURNED FROM CT IN STABLE CONDITION.
[2018-05-18 11:03] LABS: BACTERIA,URINE Moderate /HPF (None Seen); RBC,URINE TOO NUMEROUS TO COUN /HPF (0-2); SQUAMOUS EPITHELIAL CELL,UR Rare /HPF (None Seen); WBC,URINE 21-50 /HPF (0-3)
[2018-05-18] MEDS ORDERED: OLAN5TAB6 PO (11:21)
[2018-05-18] MEDS ORDERED: CLON1PAT TD (11:21)
[2018-05-18] MEDS ORDERED: POLY17PO4 PO (11:21)
[2018-05-18] MEDS ORDERED: ASCO500T9 PO (11:21)
[2018-05-18] MEDS ORDERED: CEFTRIAXONE 1 G VIAL ONE (11:27)
[2018-05-18] MEDS ORDERED: CEFTRIAXONE 1GM BAG (ER ONLY) 50 ML IV ONE (11:30)
--- NOTE | 2018-05-18 11:45 | NUR ---
JENNI TIERNEY FOR PANEL - DESK SERGEANT DR. AGUILERA Addendum: 05/18/18 at 1146 by ROSEMARY DESK SERGEANT KIARRA CORDON
--- NOTE | 2018-05-18 12:29 | NUR ---
REPORT GIVEN TO ARACELY HOLLY FOR MEREDITH UPON ADMISSION.
--- NOTE | 2018-05-18 13:06 | NUR ---
PATIENT TRANSPORTED TO [facility] VIA STRETCHER. RNARACELY TO PROVIDE MEREDITH.
[2018-05-18] MEDS ORDERED: NA PHOS,M-B/NA PHOS,DI-BA 1 EA ENEMA RC PRN (13:30)
[2018-05-18] MEDS ORDERED: MAG HYDROX/AL HYDROX/SIMETH 30 ML UDC PO PRN (13:30)
[2018-05-18] MEDS ORDERED: Z GUARD REMEDY 2 OZ OINT TP PRN (14:00)
[2018-05-18] MEDS ORDERED: CLONIDINE HCL 0.1MG/24H PTWK 1 EA PATCH TD SCH (14:00)
[2018-05-18] MEDS ORDERED: ONDANSETRON HCL/PF 4 MG/2 ML VIAL IVP PRN (14:00)
[2018-05-18] MEDS ORDERED: ACETAMINOPHEN 325 MG TABLET PO PRN (14:00)
[2018-05-18] MEDS: IV NS 0.9% 1,000 ML IV PRN (14:29)
--- NOTE | 2018-05-18 14:45 | NUR ---
RN ADMITTING MEDSURG NOTES ADMITTED PATIENT INTO FLOOR FROM ER WITH THE DX OF ABDOMINAL PAIN AND UTI. PATIENT IN BED RESTING, AOx1, DAUGHTER AT BEDSIDE. INFUSING NS 1000ML AT 75ML/HOUR VIA PERIPHERAL LINE ON R AC SITE. BED IN LOWEST LOCKED POSITION, CALL LIGHT WITHIN REACH AT ALL TIMES, WILL CONTINUE TO MONITOR.
[2018-05-18 16:00] VITALS: BP 169/62
[2018-05-18] MEDS ORDERED: DEXTROSE 50%-WATER 50 ML DISP.SYRIN IV PRN (16:30)
[2018-05-18] MEDS: ACIDOPHILUS/BULGARICUS 1 EACH TAB.CHEW PO SCH (16:56)
[2018-05-18] MEDS: DONEPEZIL 5 MG TABLET PO SCH (16:57)
[2018-05-18] MEDS ORDERED: ACETAMINOPHEN 325 MG TABLET PO SCH (17:00)
[2018-05-18] MEDS: BLOOD SUGAR DIAGNOSTIC 1 EACH STRIP IN SCH ×2 (17:07→21:19)
--- NOTE | 2018-05-18 18:45 | NUR ---
RN MEDSURG CLOSING NOTES PATIENT IN BED A&OX1, INCREASED CONCUSSION, VERBALLY ABLE TO MAKE NEEDS KNOWN. BREATHING EVEN AND UNLABORED ON ROOM AIR AND TOLERATING. SEEN BY MD, CONTINUE IV FLUIDS, IV ATB, STOOL SOFTENER, BLOOD CULTURE PENDING. ADMINISTERED TYLENOL 650MG PRN FOR PAIN AFTER COMPLAINT OF BODY ACHE, AND EFFECTIVE AFTER 20 MINUTES. BED IN LOWEST LOCKED POSITION, CALL LIGHT WITHIN REACH. WILL ENDORSE TO NIGHT NURSE FOR MEREDITH
--- NOTE | 2018-05-18 19:30 | NUR ---
RN MS OPENING NOTES RECEIVED PATIENT IN BED AWAKE. ALERT AND ORIENTED X1. VERBALLY RESPONSIVE. BREATHING EVEN AND UNLABORED. NO SOB NOTED. ON ROOM AIR. NO COMPLAINTS OF PAIN OR DISCOMFORT. IV ACCESS INTACT AND PATENT. SKIN DRY AND WARM TO TOUCH. AFEBRILE. ALL OTHER NEEDS ATTENDED TO. SAFETY MEASURES IN PLACE. CALL LIGHT WITHIN REACH. WILL CONTINUE TO MONITOR.
[2018-05-18 20:00] VITALS: BP 126/42
[2018-05-18] MEDS: OLANZAPINE 5 MG/TAB.RAPDIS PO SCH (21:13)
[2018-05-18] MEDS: MAGNESIUM HYDROXIDE 30 ML UDC PO SCH (21:13)
[2018-05-18] MEDS: ATORVASTATIN 40 MG TABLET PO SCH (21:13)
[2018-05-18] MEDS: INSULIN REGULAR, HUMAN 100 UNIT/ML 3 ML VIAL SQ PRN (21:25)
[2018-05-19] MEDS: BLOOD SUGAR DIAGNOSTIC 1 EACH STRIP IN SCH ×4 (06:30→21:28)
--- NOTE | 2018-05-19 06:35 | NUR ---
RN MS NOTES PATIENTS BS 125. NO COVERAGE NEEDED.
--- NOTE | 2018-05-19 06:43 | NUR ---
RN MS CLOSING NOTES PATIENT IN BED AWAKE. ALERT AND ORIENTED X1. HAD EPISODES OF SCREAMING AND CRYING LAST NIGHT, OTHERWISE NO ACUTE CHANGES. VERBALLY RESPONSIVE. BREATHING EVEN AND UNLABORED. NO SOB NOTED. ON ROOM AIR. NO COMPLAINTS OF PAIN OR DISCOMFORT. IV ACCESS INTACT AND PATENT - INFUSING NS @ 75ML/HR. SKIN DRY AND WARM TO TOUCH. AFEBRILE. ALL OTHER NEEDS ATTENDED TO. SAFETY MEASURES IN PLACE. CALL LIGHT WITHIN REACH. WILL ENDORSE TO ONCOMING NURSE FOR CONTINUITY OF CARE.
--- NOTE | 2018-05-19 07:15 | NUR ---
RN NOTES PATIENT A/OX1, VERBALLY RESPONSIVE BUT CONFUSED. NO S/SX OF DISTRESS NOTED, IVF INFUSING AND TOLERATING WELL, KEPT COMFORTABLE, NEEDS ATTENDED, CALL LIGHT WITHINR EACH, BED ALARM ON, SAFETY MEASURES IN PLACED, WILL CONTINUE TO MONITOR.
[2018-05-19 07:46] LABS: BASOPHILS # (AUTO) 0.1 /CMM (0.0-0.2); BASOPHILS % (AUTO) 0.6 % (0.0-2.0); EOSINOPHILS % (AUTO) 5.8 % (0.0-6.0); HEMATOCRIT 37 % (33-45); LYMPHOCYTES # (AUTO) 2.4 /CMM (0.8-4.8); LYMPHOCYTES % (AUTO) 29.1 % (20.0-44.0); MEAN CORPUSCULAR HGB CONC 32 g/dl (31.0-36.0); MEAN CORPUSCULAR VOLUME 88 fL (82-100); MONOCYTES # (AUTO) 0.6 /CMM (0.1-1.30); NEUTROPHILS # (AUTO) 4.8 /CMM (1.8-8.9); NEUTROPHILS % (AUTO) 57.5 % (43.0-81.0); PLATELET COUNT (AUTO) 260 /CMM (150-450); RDW COEFFICIENT OF VARIATION 16.4 (11.5-15.0); RED BLOOD CELL COUNT(AUTO) 4.19 MIL/uL (4.0-5.2); WHITE BLOOD COUNT (AUTO) 8.4 K/uL (4.3-11.0)
[2018-05-19 07:54] LABS: ALANINE AMINOTRANSFERASE 14 U/L (12-78); ALBUMIN 2.6 g/dL (3.4-5.0); ALKALINE PHOSPHATASE 66 U/L (46-116); ASPARTATE AMINOTRANSFERASE 12 U/L (15-37); BILIRUBIN,TOTAL 0.3 mg/dL (0.2-1.0); CALCIUM, SERUM 8.4 mg/dL (8.5-10.1); CARBON DIOXIDE 27 mmol/L (21-32); CHLORIDE 107 mmol/L (98-107); CREATININE 0.7 mg/dL (0.6-1.3); GLUCOSE 128 mg/dL (74-106); MAGNESIUM 1.6 mg/dL (1.8-2.4); POTASSIUM 4.3 mmol/L (3.5-5.1); SODIUM SERUM 141 mmol/L (136-145); TOTAL PROTEIN, SERUM 5.9 g/dL (6.4-8.2); UREA NITROGEN, BLOOD 21 mg/dL (7-18)
[2018-05-19 08:04] LABS: CHOLESTEROL 172 mg/dL (<200); HDL CHOLESTEROL 54 mg/dL (40-60); LDL 116 mg/dL (0-99); THYROID STIMULATING HORMONE 5.279 uIU/mL (0.358-3.74); TRIGLYCERIDES 93 mg/dL (30-150)
[2018-05-19 08:26] VITALS: BP 146/67
[2018-05-19] MEDS: LOSARTAN POTASSIUM 50 MG TABLET PO SCH (09:20)
[2018-05-19] MEDS: LEVOTHYROXINE SODIUM 125 MCG TABLET PO SCH (09:21)
[2018-05-19] MEDS: OLANZAPINE 5 MG/TAB.RAPDIS PO SCH ×2 (09:21→21:28)
[2018-05-19] MEDS: Magnesium 1GM/D5W 100ML PREMIX 100 ML IV SCH ×2 (09:21→10:28)
[2018-05-19] MEDS: DONEPEZIL 5 MG TABLET PO SCH ×2 (09:21→17:44)
[2018-05-19] MEDS: POLYETHYLENE GLYCOL 3350 17 GM POWD.PACK PO SCH (09:24)
[2018-05-19] MEDS: THIAMINE HCL 100 MG TABLET PO SCH (09:24)
[2018-05-19] MEDS: CYANOCOBALAMIN 500 MCG TABLET PO SCH (09:24)
[2018-05-19] MEDS: MULTIVITAMINS,THERAGRAN 1 UDTAB TABLET PO SCH (09:24)
[2018-05-19] MEDS: ACIDOPHILUS/BULGARICUS 1 EACH TAB.CHEW PO SCH ×3 (09:24→17:44)
[2018-05-19] MEDS: DOCUSATE SODIUM 250 MG CAPSULE PO SCH (09:24)
[2018-05-19] MEDS: ASCORBIC ACID 500 MG TABLET PO SCH (09:24)
[2018-05-19] MEDS: INSULIN REGULAR, HUMAN 100 UNIT/ML 3 ML VIAL SQ PRN ×2 (12:26→21:32)
[2018-05-19] MEDS: CEFTRIAXONE 1 G in IV D5W 50 ML IV SCH (12:27)
[2018-05-19 16:00] VITALS: BP 133/68
--- NOTE | 2018-05-19 19:04 | NUR ---
RN NOTES PATIENT A/OX1, CONFUSED, NOTED WITH SLIGHT AGITATION DURING ADL CARE. NO DISTRESS NOTED, SKIN CARE PROVIDED WOUND TREATMENT RENDERED, PIV PATENT AND FLUSHES WELL, IVF INFUSING AND TOLERATING. NEEDS ATTENDED AND MET, CALL LIGHT WITHIN REACH, WILL ENDORSE TO DIESEL INSPECTOR FOR MEREDITH.
--- NOTE | 2018-05-19 19:30 | NUR ---
RN MS OPENING NOTES RECEIVED PATIENT IN BED AWAKE. ALERT AND ORIENTED X1. CONFUSED. VERBALLY RESPONSIVE. BREATHING EVEN AND UNLABORED. NO SOB NOTED. ON ROOM AIR. NO COMPLAINTS OF PAIN OR DISCOMFORT. IV ACCESS INTACT AND PATENT WITH NS INFUSING AT 75ML/HR. SKIN DRY AND WARM TO TOUCH. AFEBRILE. ALL OTHER NEEDS ATTENDED TO. SAFETY MEASURES IN PLACE. CALL LIGHT WITHIN REACH. WILL CONTINUE TO MONITOR.
[2018-05-19 20:00] VITALS: BP 170/55
[2018-05-19] MEDS: MAGNESIUM HYDROXIDE 30 ML UDC PO SCH (21:29)
[2018-05-19] MEDS: ATORVASTATIN 40 MG TABLET PO SCH (21:29)
[2018-05-20] MEDS: IV NS 0.9% 1,000 ML IV PRN (03:40)
[2018-05-20] MEDS: BLOOD SUGAR DIAGNOSTIC 1 EACH STRIP IN SCH ×4 (06:30→21:45)
--- NOTE | 2018-05-20 07:08 | NUR ---
WOUND CARE CONSULT WOUND CARE RECEIVED CONSULT FOR LOW ROBY. WOUND CARE WILL DEFER TO SURGICAL TEAM WHO ARE CURRENTLY FOLLOWING. PATIENT WITH ROBY AT 13, ALL PRESSURE ULCER PREVENTION MEASURES NOTED TO BE IN PLACE. WILL SEE PRN.
--- NOTE | 2018-05-20 07:17 | NUR ---
RN MS CLOSING NOTES PATIENT IN BED ASLEEP. ALERT AND ORIENTED X1, CONFUSED WHEN AWAKE. HAD EPISODES OF SCREAMING AND CRYING LAST NIGHT, OTHERWISE NO ACUTE CHANGES. VERBALLY RESPONSIVE. BREATHING EVEN AND UNLABORED. NO SOB NOTED. ON ROOM AIR. NO COMPLAINTS OF PAIN OR DISCOMFORT. IV ACCESS INTACT AND PATENT - INFUSING NS @ 75ML/HR. SKIN DRY AND WARM TO TOUCH. AFEBRILE. ALL OTHER NEEDS ATTENDED TO. SAFETY MEASURES IN PLACE. CALL LIGHT WITHIN REACH. WILL ENDORSE TO ONCOMING NURSE FOR CONTINUITY OF CARE.
[2018-05-20 07:44] LABS: CALCIUM, SERUM 8.3 mg/dL (8.5-10.1); CARBON DIOXIDE 24 mmol/L (21-32); CHLORIDE 108 mmol/L (98-107); CREATININE 0.6 mg/dL (0.6-1.3); GLUCOSE 125 mg/dL (74-106); POTASSIUM 4.1 mmol/L (3.5-5.1); SODIUM SERUM 140 mmol/L (136-145); UREA NITROGEN, BLOOD 19 mg/dL (7-18)
--- NOTE | 2018-05-20 07:55 | NUR ---
ms rn received patient, sleeping, at this time, refused to be awaken, no distress noted, will monitor patient.
[2018-05-20 08:00] VITALS: BP 180/70
--- NOTE | 2018-05-20 09:00 | NUR ---
ms rn refused meds, will offer later w/ food.
--- NOTE | 2018-05-20 09:35 | NUR ---
ms rn breakfast given by daughter, was able to spoke w/ laura simpson,due meds given,tolerated well.
[2018-05-20] MEDS: MULTIVITAMINS,THERAGRAN 1 UDTAB TABLET PO SCH (10:41)
[2018-05-20] MEDS: OLANZAPINE 5 MG/TAB.RAPDIS PO SCH ×2 (10:42→21:45)
[2018-05-20] MEDS: THIAMINE HCL 100 MG TABLET PO SCH (10:42)
[2018-05-20] MEDS: LEVOTHYROXINE SODIUM 125 MCG TABLET PO SCH (10:42)
[2018-05-20] MEDS: ASCORBIC ACID 500 MG TABLET PO SCH (10:43)
[2018-05-20] MEDS: LOSARTAN POTASSIUM 50 MG TABLET PO SCH (10:43)
[2018-05-20] MEDS: DOCUSATE SODIUM 250 MG CAPSULE PO SCH (10:43)
[2018-05-20] MEDS: ACIDOPHILUS/BULGARICUS 1 EACH TAB.CHEW PO SCH ×3 (10:44→16:48)
[2018-05-20] MEDS: CYANOCOBALAMIN 500 MCG TABLET PO SCH (10:44)
[2018-05-20] MEDS: DONEPEZIL 5 MG TABLET PO SCH ×2 (10:45→16:48)
[2018-05-20] MEDS: POLYETHYLENE GLYCOL 3350 17 GM POWD.PACK PO SCH (10:45)
--- NOTE | 2018-05-20 12:05 | NUR ---
MS HOLLY BS -172 - COVERAGE WAS NOT GIVEN DUE TO PATIENT REFUSED LUNCH.
[2018-05-20] MEDS: CEFTRIAXONE 1 G in IV D5W 50 ML IV SCH (13:56)
[2018-05-20 16:00] VITALS: BP 157/58
--- NOTE | 2018-05-20 19:00 | NUR ---
MS RN ON BED,NO DISTRESS NOTED.
--- NOTE | 2018-05-20 19:20 | NUR ---
MS RN OPENING NOTES PT AWAKE AND ALERT X2, ORIENTED TO NAME AND PLACE. PT IN ROOM AIR, TOLERATING WELL, NO SIGNS OF LABORED BREATHING OR DISTRESS. IV ACCESS ON THE RIGHT AC 20G IS PATENT AND INTACT, NS RUNNING AT 75 MLS/HR. RIGHT FORE ARM AND RIGHT HAND SKIN TEAR COVERED WITH XEROFORM, DISCOLORATION BILATERAL ARMS ARE PRESENT, BILATERAL HEEL REDNESS PRESENT, WILL CONTINUE TO MONITOR FOR ANY CHANGES. PT DENIES ANY PAIN AT THIS MOMENT. SAFETY MEASURES PLACED, CALL LIGHT WITHIN REACH. WILL CONTINUE TO MONITOR AND ASSESS PATIENT.
[2018-05-20 20:00] VITALS: BP 146/68
--- NOTE | 2018-05-20 20:00 | NUR ---
MS RN NOTES/ HEART RATE PT HR 44 BPM, PT IS ASYMPTOMATIC, LAYING IN BED COMFORTABLY, NO SIGNS OF DISTRESS, NO LABORED BREATHING, NO SIGNS OF PAIN. WILL CONTINUE TO MONITOR PATIENT FOR ANY CHANGES. CHARGE NURSE AWARE.
[2018-05-20] MEDS: MAGNESIUM HYDROXIDE 30 ML UDC PO SCH (21:44)
[2018-05-20] MEDS: ATORVASTATIN 40 MG TABLET PO SCH (21:45)
--- NOTE | 2018-05-20 22:12 | NUR ---
MS RN NOTES/ BLOOD SUGAR BLOOD SUGAR AT 126, NO INSULIN COVERAGE GIVEN PER PROTOCOL AND MD ORDER
--- NOTE | 2018-05-20 23:00 | NUR ---
MS RN NOTES/ RASHES ON BODY PER PATIENT RASHES FOUND ON THE ANTERIOR CHEST, ABDOMEN, BACK, LOWER UPPER LEG "HAVE BEEN THERE FOREVER." RASH IS DRY, CLEANSED WITH SOAP AND WATER, APPLIED LOTION, PICTURE TAKEN, WILL CONTINUE TO MONITOR AND ASSESS FOR ANY CHANGES OR WORSENING CONDITION
--- NOTE | 2018-05-21 04:16 | NUR ---
MS RN NOTES/ BP & HR PT BP IS 165/69, HR 45. PT IS ASYMPTOMATIC, NO SIGNS OF DISTRESS. SLEEPING IN BED COMFORTABLY, EASILY AROUSED. CHARGE NURSE MADE AWARE, WILL CONTINUE TO MONITOR CLOSELY FOR ANY SIGNS OF DISTRESS.
[2018-05-21 04:17] VITALS: BP 165/69
[2018-05-21] MEDS: IV NS 0.9% 1,000 ML IV PRN (05:16)
--- NOTE | 2018-05-21 06:19 | NUR ---
RN CLOSING NOTES PT ASLEEP IN BED COMFORTABLY, EASILY AROUSED, SUPINE POSITION. PT IN ROOM AIR, TOLERATING WELL AT 96%, NO SIGNS OF LABORED BREATHING OR DISTRESS. IV ACCESS ON THE RIGHT AC 20G IS PATENT AND INTACT, NS RUNNING AT 75 MLS/HR. RIGHT FOREARM COVERED WITH XEROFORM INTACT, DISCOLORATION BILATERAL ARMS ARE PRESENT, BILATERAL HEEL REDNESS PRESENT, DRY RASHES ON THE CHEST, ABDOMEN, AND UPPER LEG, SKIN ASSESSMENT PICS ARE IN THE CHART, NO SIGNS OF NEW INFECTION, NO DRAINAGE, OR NO WORSENING SKIN CONDITION. PT SHOWS NO SIGN OF PAIN AT THIS MOMENT. SAFETY MEASURES PLACED, CALL LIGHT WITHIN REACH. WILL ENDORSE CONTINUITY OF CARE TO THE ONCOMING AM NURSE.
--- NOTE | 2018-05-21 06:40 | NUR ---
RN NOTES/ BLOOD SUGAR BLOOD SUGAR 122, NO INSULIN COVERAGE PER SLIDING SCALE.
[2018-05-21] MEDS: BLOOD SUGAR DIAGNOSTIC 1 EACH STRIP IN SCH ×3 (06:50→17:46)
--- NOTE | 2018-05-21 07:32 | NUR ---
MS RN NOTES PATIENT RECEIVED RESTING INSIDE ROOM. SLEEPING, EASILY AROUSABLE THROUGH VERBAL AND TACTILE STIMULI. BREATHING EVEN AND UNLABORED. NO SOB OR ACUTE DISTRESS. PATIENT ALERT AND ORIENTED X 2, VERBALLY RESPONSIVE. DENIES ANY PAIN OR DISCOMFORT. IV INTACT AND PATENT. SAFETY PRECAUTIONS IN PLACE. WILL CONTINUE TO MONITOR. BED LOCKED AND IN LOW POSITION. BED ALARM ON. CALL LIGHT WITHIN EASY REACH
[2018-05-21 08:00] VITALS: BP 136/63
[2018-05-21] MEDS: DOCUSATE SODIUM 250 MG CAPSULE PO SCH (08:50)
[2018-05-21] MEDS: THIAMINE HCL 100 MG TABLET PO SCH (08:50)
[2018-05-21] MEDS: MULTIVITAMINS,THERAGRAN 1 UDTAB TABLET PO SCH (08:50)
[2018-05-21] MEDS: OLANZAPINE 5 MG/TAB.RAPDIS PO SCH (08:50)
[2018-05-21] MEDS: ACIDOPHILUS/BULGARICUS 1 EACH TAB.CHEW PO SCH ×3 (08:50→17:47)
[2018-05-21] MEDS: LEVOTHYROXINE SODIUM 125 MCG TABLET PO SCH (08:50)
[2018-05-21] MEDS: LOSARTAN POTASSIUM 50 MG TABLET PO SCH (08:51)
[2018-05-21] MEDS: ASCORBIC ACID 500 MG TABLET PO SCH (08:51)
[2018-05-21] MEDS: DONEPEZIL 5 MG TABLET PO SCH ×2 (08:51→17:46)
[2018-05-21] MEDS: POLYETHYLENE GLYCOL 3350 17 GM POWD.PACK PO SCH (08:51)
[2018-05-21] MEDS: CYANOCOBALAMIN 500 MCG TABLET PO SCH (08:54)
[2018-05-21] MEDS: CEFTRIAXONE 1 G in IV D5W 50 ML IV SCH (12:35)
[2018-05-21] MEDS: INSULIN REGULAR, HUMAN 100 UNIT/ML 3 ML VIAL SQ PRN (12:36)
--- NOTE | 2018-05-21 13:00 | NUR ---
MS RN NOTES RECEIVED CALL FROM CASE MANAGEMENT, SAID THAT PATIENT TO BE DISCHARGED TODAY, TO TRANSFER BACK TO [facility] PER KIARRA CORDON. INFORMED KIARRA CORDON THAT WERE STILL WAITING FOR DISCHARGE ORDER AND DISCHARGE SUMMARY. WILL CONTINUE TO MONITOR
[2018-05-21] MEDS ORDERED: CEPH-569 PO (14:45)
--- NOTE | 2018-05-21 15:00 | NUR ---
MS RN NOTES KIARRA CORDON INFORMED REGARDING PATIENT HEAR RATE OF 53. PER KIARRA CORDON, PATIENT IS MEDICALLY STABLE AND SAFE TO BE DISCHARGED TO SNF. CASE MANAGEMENT AND HOLIDAY MANOR INFORMED. WILL CONTINUE TO MONITOR
[2018-05-21 16:00] VITALS: BP 145/56
--- NOTE | 2018-05-21 18:45 | NUR ---
MS RN NOTES PATIENT FOR DISCHARGE TO [facility]. REPORT GIVEN TO ALIYA. DISCHARGE INSTRUCTIONS AND EDUCATION PROVIDED AND VERBALIZED UNDERSTANDING. IV REMOVED WITH MINIMAL BLEEDING NOTED, PRESSURE DRESSING PLACED. ALL BELONGINGS COMPLETE ON DISCHARGE, NO REPORT OF MISSING INVENTORY. PATIENT LEFT UNIT VIA GURNEY AT 1740 IN STABLE CONDITION. BREATHING EVEN AND UNLABORED. NO CHANGES IN LOC NOTED. MD AWARE OF DISCHARGE.
[2018-05-24] MEDS ORDERED: ERGOCALCIFEROL (VITAMIN D 2) 50,000 UNIT CAPSULE PO SCH (09:00)
== END 2018-05-21 18:42 | DRG 689 ==
LOC: ER 09:35 → MED 12:42
PROVIDERS: ADMIT Nurse Practitioner Acute Care; ATTEND Nurse Practitioner Acute Care
DX: N39.0 Urinary tract infection, site not specified (principal); N17.0 Acute kidney failure with tubular necrosis; G93.41 Metabolic encephalopathy; E86.0 Dehydration; K21.9 Gastro-esophageal reflux disease without esophagitis; K59.00 Constipation, unspecified; E78.5 Hyperlipidemia, unspecified; E03.9 Hypothyroidism, unspecified; E88.09 Other disorders of plasma-protein metabolism, not elsewhere classified; E83.51 Hypocalcemia; F03.90 Unspecified dementia, unspecified severity, without behavioral disturbance, psychotic disturbance, mood disturbance, and anxiety; I27.20 Pulmonary hypertension, unspecified; I10 Essential (primary) hypertension; Z87.891 Personal history of nicotine dependence; Z90.710 Acquired absence of both cervix and uterus; Z79.84 Long term (current) use of oral hypoglycemic drugs; E77.8 Other disorders of glycoprotein metabolism; N20.0 Calculus of kidney; Z87.442 Personal history of urinary calculi; E11.65 Type 2 diabetes mellitus with hyperglycemia; S61.411A Laceration without foreign body of right hand, initial encounter; S51.811A Laceration without foreign body of right forearm, initial encounter; X58.XXXA Exposure to other specified factors, initial encounter; Y93.9 Activity, unspecified; Y92.009 Unspecified place in unspecified non-institutional (private) residence as the place of occurrence of the external cause; G89.29 Other chronic pain; F32.9 Major depressive disorder, single episode, unspecified
CPT/HCPCS: 36415; 71045-TC; 80048-TC; 80053-TC; 80061-TC; 80076-TC; 81000-TC; 82962-TC; 83605-TC; 83735-TC; 84100-TC; 84443-TC; 84484-TC; 85025-TC; 85652-TC; 85730-TC; 87040-TC; 87081-TC; 87086-TC; 93307-TC; A4216; A4606; J0696; J1815; J3475; J7030; J7060; Z7610

== ENCOUNTER 2018-12-22 14:15 | Inpatient (IN) | payer MEDICARE, MEDICAID ==
[~2018-12-22] VITALS: Ht 165.1 cm; Wt 80.9 kg
[~2018-12-22 14:15] MED LIST changes: +ASCO500T9 PO; +CEPH-569 PO; -CLON0.5T12 PO; +CLON1PAT TD; -LOSA50TA21 PO; +LOSA50TA39 PO; -NYST15OI TP; +OLAN5TAB6 PO; -RISP1SOL5 PO; -TRAZ-182 PO; -VALP250S3 PO
--- NOTE | 2018-12-22 14:15 | NUR ---
[facility] from [facility] for blisters on bilateral hands since yesterday, +PUS. TO ER BED 1, HOOKED TO MONITOR, CHANGED TO GOWN, PROVIDED W WARM BLANKET, AWAITING MD BOWLES.
--- NOTE | 2018-12-22 14:40 | NUR ---
DR PRATER AT BEDSIDE
[2018-12-22] MEDS ORDERED: CEFTRIAXONE 1GM BAG (ER ONLY) 50 ML IV ONE ×2 (14:55→15:00)
[2018-12-22 14:59] LABS: BASOPHILS % (AUTO) 0.2 % (0.0-2.0); EOSINOPHILS % (AUTO) 1.1 % (0.0-6.0); HEMATOCRIT 32 % (33-45); HEMOGLOBIN 10.5 g/dL (11.5-14.8); LYMPHOCYTES # (AUTO) 1.6 /CMM (0.8-4.8); LYMPHOCYTES % (AUTO) 13.9 % (20.0-44.0); MEAN CORPUSCULAR HGB CONC 33 g/dl (31.0-36.0); MEAN CORPUSCULAR VOLUME 87 fL (82-100); MONOCYTES % (AUTO) 8.6 % (2.0-12.0); NEUTROPHILS # (AUTO) 8.9 /CMM (1.8-8.9); NEUTROPHILS % (AUTO) 76.2 % (43.0-81.0); PLATELET COUNT (AUTO) 212 /CMM (150-450); RED BLOOD CELL COUNT(AUTO) 3.72 MIL/uL (4.0-5.2); WHITE BLOOD COUNT (AUTO) 11.7 K/uL (4.3-11.0)
[2018-12-22] MEDS ORDERED: MUPIROCIN OINT 2% 22 GM TUBE TP ONE (15:00)
[2018-12-22] MEDS ORDERED: MUPIROCIN OINT 2% 22 GM TUBE ONE (15:08)
[2018-12-22 15:16] LABS: ALANINE AMINOTRANSFERASE 12 U/L (12-78); ALBUMIN 2.9 g/dL (3.4-5.0); ALKALINE PHOSPHATASE 79 U/L (46-116); ASPARTATE AMINOTRANSFERASE 13 U/L (15-37); BILIRUBIN,DIRECT 0.1 mg/dL (0.0-0.2); BILIRUBIN,TOTAL 0.3 mg/dL (0.2-1.0); CALCIUM, SERUM 8.9 mg/dL (8.5-10.1); CARBON DIOXIDE 24 mmol/L (21-32); CHLORIDE 107 mmol/L (98-107); CREATININE 0.8 mg/dL (0.6-1.3); GLUCOSE 158 mg/dL (74-106); POTASSIUM 4.6 mmol/L (3.5-5.1); SODIUM SERUM 140 mmol/L (136-145); TOTAL PROTEIN, SERUM 6.6 g/dL (6.4-8.2); UREA NITROGEN, BLOOD 29 mg/dL (7-18)
--- NOTE | 2018-12-22 15:41 | NUR ---
CALLED [facility]; ADV TEXTING WILL CALL BACK CALLED NURSING SUP FOR MED SURG BED
[2018-12-22] MEDS ORDERED: VANCOMYCIN 1 GM in IV D5W 250 ML IV ONE (16:00)
--- NOTE | 2018-12-22 16:03 | NUR ---
GOT BED 308-1
[2018-12-22] MEDS ORDERED: DOCU100C36 PO (16:30)
[2018-12-22] MEDS ORDERED: THIA100T74 PO (16:30)
[2018-12-22] MEDS ORDERED: OLAN7.5T3 PO (16:30)
[2018-12-22] MEDS ORDERED: BLOO-668 IN (16:30)
[2018-12-22] MEDS ORDERED: NUTR237L18 PO (16:30)
[2018-12-22] MEDS ORDERED: AMLO5TAB9 PO (16:30)
[2018-12-22] MEDS ORDERED: OLAN2.5T3 PO (16:30)
--- NOTE | 2018-12-22 16:50 | NUR ---
REPORT GIVEN TO ALEX HOLLY OF MED-SURG UNIT
[2018-12-22] MEDS ORDERED: ONDANSETRON HCL/PF 4 MG/2 ML VIAL IVP PRN (17:00)
[2018-12-22] MEDS ORDERED: MAGNESIUM HYDROXIDE 30 ML UDC PO PRN (17:00)
[2018-12-22] MEDS: DOCUSATE SODIUM 100 MG CAPSULE PO SCH (17:00)
[2018-12-22] MEDS: PROSOURCE / PROSTAT (PYXIS) 30 ML UDC PO SCH (17:00)
[2018-12-22] MEDS: THIAMINE HCL 100 MG TABLET PO SCH (17:00)
[2018-12-22] MEDS ORDERED: ACETAMINOPHEN 325 MG TABLET PO PRN ×2 (17:00)
[2018-12-22] MEDS: LOSARTAN POTASSIUM 50 MG TABLET PO SCH (17:00)
[2018-12-22] MEDS: OLANZAPINE 2.5 MG TABLET PO SCH ×2 (17:00→22:00)
[2018-12-22] MEDS: AMLODIPINE BESYLATE 5 MG TABLET PO SCH (17:00)
[2018-12-22] MEDS ORDERED: MAG HYDROX/AL HYDROX/SIMETH 30 ML UDC PO PRN (17:00)
[2018-12-22] MEDS ORDERED: Z GUARD REMEDY 2 OZ OINT TP PRN (17:00)
[2018-12-22] MEDS: LACTOBACILLUS RHAMNOSUS GG 1 EACH CAP.SPRINK PO SCH (17:05)
[2018-12-22] MEDS: BLOOD SUGAR DIAGNOSTIC 1 EACH STRIP IN SCH ×2 (17:30→21:00)
--- NOTE | 2018-12-22 18:08 | NUR ---
RN NOTES PT'S ALL AFTERNOON MEDS NOT GIVEN, PT STILL IN E.R.
[2018-12-22] MEDS ORDERED: FEE PK DOSING 1 MIN EA MC ONE (18:17)
[2018-12-22] MEDS: CYANOCOBALAMIN 500 MCG TABLET PO SCH (18:26)
[2018-12-22] MEDS: METFORMIN 500 MG TABLET PO SCH (18:27)
[2018-12-22 19:18] VITALS: BP 137/51
--- NOTE | 2018-12-22 19:49 | NUR ---
MS/RN RECEIVED PATIENT SLEEPING, APPEAR COMFORTABLE, BREATHING EVEN AND UNLABORED, CALL LIGHT IN REACH. FALL RISK, FALL PRECAUTIONS PER PROTOCOL IN PLACE, WILL MONITOR.
[2018-12-22 20:00] VITALS: BP 131/45
[2018-12-22] MEDS: IV NS 0.9% 1,000 ML IV PRN (20:44)
--- NOTE | 2018-12-22 21:58 | NUR ---
MS/RN ACCU CHECK BLOOD SUGAR 141, DID NOT COVER, PATIENT IS NOT EATING. WILL CONTINUE TO MONITOR.
[2018-12-22] MEDS: ATORVASTATIN 40 MG TABLET PO SCH (22:00)
[2018-12-22] MEDS ORDERED: MAGNESIUM HYDROXIDE 30 ML UDC PO SCH (22:00)
--- NOTE | 2018-12-22 22:04 | NUR ---
MS/RN PER LAB SPECIMEN FOR MRSA SURVEILLANCE RECEIVED BUT NO ORDER, ORDER ENTERED.
--- NOTE | 2018-12-22 23:27 | NUR ---
MS/RN MEDS AT 2200 NOT GIVEN, PATIENT WAS SLEEPING AND WAS AT HIGH RISK FOR ASPIRATION.
--- NOTE | 2018-12-23 06:45 | NUR ---
MS/RN PATIENT IS STILL SLEEPING AT THIS TIME, EASILY AROUSABLE, APPEAR COMFORTABLE, NO SIGNS OF DISTRESS NOTED, CALL LIGHT IN REACH. ALL NEEDS ATTENDED AT THIS TIME, WILL CONTINUE TO MONITOR.
[2018-12-23 07:00] LABS: BASOPHILS % (AUTO) 0.3 % (0.0-2.0); EOSINOPHILS % (AUTO) 4.5 % (0.0-6.0); HEMATOCRIT 33 % (33-45); HEMOGLOBIN 11.1 g/dL (11.5-14.8); LYMPHOCYTES # (AUTO) 1.6 /CMM (0.8-4.8); LYMPHOCYTES % (AUTO) 21.4 % (20.0-44.0); MEAN CORPUSCULAR HGB CONC 34 g/dl (31.0-36.0); MEAN CORPUSCULAR VOLUME 86 fL (82-100); MONOCYTES # (AUTO) 0.7 /CMM (0.1-1.30); MONOCYTES % (AUTO) 9.6 % (2.0-12.0); NEUTROPHILS # (AUTO) 4.8 /CMM (1.8-8.9); NEUTROPHILS % (AUTO) 64.2 % (43.0-81.0); PLATELET COUNT (AUTO) 202 /CMM (150-450); RED BLOOD CELL COUNT(AUTO) 3.83 MIL/uL (4.0-5.2); WHITE BLOOD COUNT (AUTO) 7.5 K/uL (4.3-11.0)
[2018-12-23 07:09] LABS: ALANINE AMINOTRANSFERASE 10 U/L (12-78); ALBUMIN 2.6 g/dL (3.4-5.0); ALKALINE PHOSPHATASE 74 U/L (46-116); ASPARTATE AMINOTRANSFERASE 9 U/L (15-37); BILIRUBIN,TOTAL 0.3 mg/dL (0.2-1.0); CALCIUM, SERUM 8.5 mg/dL (8.5-10.1); CARBON DIOXIDE 27 mmol/L (21-32); CHLORIDE 109 mmol/L (98-107); CREATININE 0.8 mg/dL (0.6-1.3); GLUCOSE 126 mg/dL (74-106); MAGNESIUM 1.4 mg/dL (1.8-2.4); POTASSIUM 4.1 mmol/L (3.5-5.1); SODIUM SERUM 143 mmol/L (136-145); UREA NITROGEN, BLOOD 24 mg/dL (7-18)
[2018-12-23 07:17] LABS: THYROID STIMULATING HORMONE 4.402 uIU/mL (0.358-3.74)
[2018-12-23] MEDS: BLOOD SUGAR DIAGNOSTIC 1 EACH STRIP IN SCH ×4 (07:30→21:37)
[2018-12-23 08:00] VITALS: BP 112/57
[2018-12-23 08:39] VITALS: BP 112/57
[2018-12-23] MEDS: Magnesium 1GM/D5W 100ML PREMIX 100 ML IV SCH ×2 (11:09→14:46)
[2018-12-23] MEDS: LEVOTHYROXINE SODIUM 125 MCG TABLET PO SCH (11:10)
[2018-12-23] MEDS: ATORVASTATIN 40 MG TABLET PO SCH (11:10)
[2018-12-23] MEDS: CYANOCOBALAMIN 500 MCG TABLET PO SCH (11:10)
[2018-12-23] MEDS: LACTOBACILLUS RHAMNOSUS GG 1 EACH CAP.SPRINK PO SCH ×2 (11:10→19:21)
[2018-12-23] MEDS: DOCUSATE SODIUM 100 MG CAPSULE PO SCH ×2 (11:10→19:19)
[2018-12-23] MEDS: LOSARTAN POTASSIUM 50 MG TABLET PO SCH ×2 (11:10→19:20)
[2018-12-23] MEDS: METFORMIN 500 MG TABLET PO SCH ×2 (11:11→19:20)
[2018-12-23] MEDS: OLANZAPINE 2.5 MG TABLET PO SCH ×4 (11:11→21:38)
[2018-12-23] MEDS: THIAMINE HCL 100 MG TABLET PO SCH (11:12)
[2018-12-23] MEDS: HYDROCODONE/APAP 5/325MG 1 EACH TABLET PO PRN ×2 (11:12→21:34)
[2018-12-23] MEDS: AMLODIPINE BESYLATE 5 MG TABLET PO SCH ×2 (11:13→19:20)
[2018-12-23] MEDS: CEFTRIAXONE 1 G in IV D5W 50 ML IV SCH (14:49)
[2018-12-23] MEDS: IV NS 0.9% 1,000 ML IV PRN (14:49)
[2018-12-23] MEDS: VANCOMYCIN 1 GM in IV D5W 250 ML IV SCH (14:50)
[2018-12-23] MEDS: PROSOURCE / PROSTAT (PYXIS) 30 ML UDC PO SCH ×3 (15:34→19:35)
[2018-12-23 16:00] VITALS: BP 145/64
[2018-12-23] MEDS ORDERED: NYSTATIN/TRIAMCIN CREAM 15 GM TUBE TP SCH (17:00)
[2018-12-23] MEDS ORDERED: LACTOBACILLUS RHAMNOSUS GG 1 EACH CAP.SPRINK PO SCH (17:05)
[2018-12-23 20:00] VITALS: BP 129/75
[2018-12-23] MEDS: MUPIROCIN OINT 2% 22 GM TUBE TP SCH (21:06)
[2018-12-23] MEDS: ZOLPIDEM TARTRATE 5 MG TABLET PO PRN (21:33)
--- NOTE | 2018-12-23 21:39 | NUR ---
MS RN NOTES Patient noted with episode of agitation, talking incoherently, and hallucination. Patient is noted with screaming, crying, and verbalizing hurting "someone". Kept room cool and minimized lighting. Of fall and safety precautions. Able to swallow due meds as ordered. Will continue to monitor accordingly.
--- NOTE | 2018-12-23 22:44 | NUR ---
MS RN NOTES Provided back rub. Patient felt relieved and was able to sleep with medications. Will continue to monitor accordingly.
[2018-12-24 03:46] LABS: CALCIUM, SERUM 8.2 mg/dL (8.5-10.1); CARBON DIOXIDE 24 mmol/L (21-32); CHLORIDE 109 mmol/L (98-107); CREATININE 0.8 mg/dL (0.6-1.3); GLUCOSE 121 mg/dL (74-106); POTASSIUM 4.4 mmol/L (3.5-5.1); SODIUM SERUM 143 mmol/L (136-145); UREA NITROGEN, BLOOD 35 mg/dL (7-18)
[2018-12-24] MEDS ORDERED: VANCOMYCIN 1 GM VIAL ONE (04:35)
[2018-12-24] MEDS: VANCOMYCIN 1 GM in IV D5W 250 ML IV SCH ×2 (04:37→22:04)
--- NOTE | 2018-12-24 06:00 | NUR ---
MS RN NOTES Patient noted pulled of her IV line. Inspected the cannula remained intact and complete, no bleeding noted. Reinserted new IV line RFA G#24, well blood return noted after the first attempt. Dressing applied accordingly. Wrapped with kerlix to secure the line. Will continue to monitor accordingly.
--- NOTE | 2018-12-24 07:01 | NUR ---
MS RN CLOSING NOTES Patient noted intermittently asleep throughout the night. With episodes of crying, screaming with incoherent thoughts noted. Kept patient safe at all times. On fall precaution. Wound care done accordingly. Bilateral palms applied with dressing wrapped with Kerlix accordingly. No new unusualities noted. Kept patient clean, dry and comfortable to bed. Endorsed to the next shift.
[2018-12-24 08:00] VITALS: BP 118/49
--- NOTE | 2018-12-24 08:00 | NUR ---
MS RN OPENING NOTES Received Patient comfortable and sleeping in bed. A/O x 1. VS stable with no acute distress. Breathing even and unlabored on room air with no respiratory distress. Denies pain and no signs and symptoms of pain at this time. PIV on RIGHT HAND 24g clean, dry, intact and flushing well. IVF NS running at 75ml/hr. BILATERAL HANDS noted with clean, dry and intact dressing. Safety precautions in place. Bed locked and set in lowest position with side rails x 2 up. All needs rendered at this time. Will continue to monitor.
--- NOTE | 2018-12-24 08:18 | NUR ---
WOUND CARE CONSULT WOUND CARE RECEIVED CONSULT FOR BLISTERS AT BOTH HANDS, RASHES CHEST AND ABDOMEN. WOUND CARE WILL DEFER CONSULT AND TREATMENT PLANS TO PLASTIC SURGICAL TEAM WHO ARE CURRENTLY FOLLOWING THIS PATIENT. PATIENT WITH ROBY AT 17, ALL PRESSURE ULCER PREVENTION MEASURES ARE NOTED TO BE IN PLACE. WILL SEE PRN.
[2018-12-24] MEDS: BLOOD SUGAR DIAGNOSTIC 1 EACH STRIP IN SCH ×4 (08:20→22:02)
[2018-12-24] MEDS: CYANOCOBALAMIN 500 MCG TABLET PO SCH (08:30)
[2018-12-24] MEDS ORDERED: LEVOTHYROXINE SODIUM 25 MCG TABLET PO SCH (08:30)
[2018-12-24] MEDS: LACTOBACILLUS RHAMNOSUS GG 1 EACH CAP.SPRINK PO SCH ×2 (08:31→17:23)
[2018-12-24] MEDS: OLANZAPINE 2.5 MG TABLET PO SCH ×4 (08:31→22:03)
[2018-12-24] MEDS: METFORMIN 500 MG TABLET PO SCH ×2 (08:31→17:07)
[2018-12-24] MEDS: THIAMINE HCL 100 MG TABLET PO SCH (08:31)
[2018-12-24] MEDS: LOSARTAN POTASSIUM 50 MG TABLET PO SCH ×2 (08:39→17:06)
[2018-12-24] MEDS: AMLODIPINE BESYLATE 5 MG TABLET PO SCH ×2 (08:39→17:07)
[2018-12-24] MEDS: MUPIROCIN OINT 2% 22 GM TUBE TP SCH ×2 (08:40→20:39)
[2018-12-24] MEDS: DOCUSATE SODIUM 100 MG CAPSULE PO SCH ×2 (08:42→17:06)
[2018-12-24] MEDS: PROSOURCE / PROSTAT (PYXIS) 30 ML UDC PO SCH ×3 (08:56→17:07)
[2018-12-24] MEDS: LEVOTHYROXINE SODIUM 125 MCG TABLET PO SCH (08:57)
[2018-12-24] MEDS: HYDROCODONE/APAP 5/325MG 1 EACH TABLET PO PRN ×2 (10:45→15:06)
[2018-12-24] MEDS: CEFTRIAXONE 1 G in IV D5W 50 ML IV SCH (15:07)
[2018-12-24 16:00] VITALS: BP 137/66
--- NOTE | 2018-12-24 18:48 | NUR ---
MS RN NOTES Patient pulled out 24g PIV on RIGHT HAND. Reinserted 20g PIV on RIGHT HAND dry, intact, and flushing well. Patient tolerated well. Continued IVF NS running at 75ml/hr. Will continue to monitor.
--- NOTE | 2018-12-24 19:15 | NUR ---
MS RN NOTE RECEIVED PT IN STABLE CONDITION A&O X1, CURRENTLY IN BED CONFUSED AND SPEAKING TO SELF. NO SIGNS OF SOB OR INDICATIONS OF PAIN. ALL CURRENT NEEDS ATTENDED TO. BED LOW, LOCKED, UPPER RAILS UP, AND CALL LIGHT WITHIN REACH.
--- NOTE | 2018-12-24 19:18 | NUR ---
MS RN CLOSING NOTES Patient comfortable and sleeping in bed. A/O x 1. VS stable with no acute distress. Breathing even and unlabored on room air with no respiratory distress. Denies pain and no signs and symptoms of pain at this time. PIV on RIGHT HAND 20g dry, intact and flushing well with IVF NS running at 75ml/hr. BILATERAL HANDS open to air per Patients request. BILATERAL ARM SLEEVES applied per Patients request. Contact isolation in place. Safety precautions in place. Bed locked and set in lowest position with side rails x 2 up. All needs rendered at this time. Will endorse plan of care to oncoming shift.
[2018-12-24 20:00] VITALS: BP 141/54
[2018-12-24] MEDS: ZOLPIDEM TARTRATE 5 MG TABLET PO PRN (20:32)
[2018-12-24] MEDS: MUPIROCIN OINT 2% 22 GM TUBE SCH (20:55)
[2018-12-24] MEDS ORDERED: MUPIROCIN OINT 2% 22 GM TUBE SCH (21:00)
[2018-12-24] MEDS: ATORVASTATIN 40 MG TABLET PO SCH (22:03)
--- NOTE | 2018-12-25 06:33 | NUR ---
MS RN NOTE PT IN STABLE CONDITION A&O X1, CURRENTLY IN BED CONFUSED AND SPEAKING TO SELF. NO SIGNS OF SOB OR INDICATIONS OF PAIN. ALL CURRENT NEEDS ATTENDED TO. BED LOW, LOCKED, UPPER RAILS UP, AND CALL LIGHT WITHIN REACH WILL CONT MONITOR AND ENDORSE TO NEXT SHIFT FOR MEREDITH.
[2018-12-25] MEDS: BLOOD SUGAR DIAGNOSTIC 1 EACH STRIP IN SCH ×4 (06:34→22:04)
--- NOTE | 2018-12-25 07:23 | NUR ---
MS RN OPENING NOTES RECEIVED PT IN BED, INTERMITTENTLY DOZING OFF, EASILY AROUSED, A/O X1. TOLERATING ROOM AIR, WITH NO ACUTE RESPIRATORY DISTRESS NOTED. PT DENIES PAIN. PT DENIES ANY QUESTIONS AND CONCERNS AT THIS MOMENT. PIV TO R HAND G22 AND LEFT HAND, BOTH FLUSHED WITH NS, INTACT AND PATENT. PT KEPT COMFORTABLE. PT'S BED IN LOWEST LOCKED POSITION WITH SR X2. CALL LIGHT KEPT WITHIN REACH. WILL CONTINUE PLAN OF CARE.
[2018-12-25 07:35] LABS: CALCIUM, SERUM 8.3 mg/dL (8.5-10.1); CARBON DIOXIDE 24 mmol/L (21-32); CHLORIDE 110 mmol/L (98-107); CREATININE 0.6 mg/dL (0.6-1.3); GLUCOSE 121 mg/dL (74-106); POTASSIUM 4.2 mmol/L (3.5-5.1); SODIUM SERUM 144 mmol/L (136-145); UREA NITROGEN, BLOOD 23 mg/dL (7-18)
[2018-12-25 08:00] VITALS: BP 147/57
[2018-12-25] MEDS: PROSOURCE / PROSTAT (PYXIS) 30 ML UDC PO SCH ×3 (08:12→16:26)
[2018-12-25] MEDS: THIAMINE HCL 100 MG TABLET PO SCH (08:12)
[2018-12-25] MEDS: LEVOTHYROXINE SODIUM 125 MCG TABLET PO SCH (08:12)
[2018-12-25] MEDS: LACTOBACILLUS RHAMNOSUS GG 1 EACH CAP.SPRINK PO SCH ×2 (08:13→16:21)
[2018-12-25] MEDS: CYANOCOBALAMIN 500 MCG TABLET PO SCH (08:13)
[2018-12-25] MEDS: DOCUSATE SODIUM 100 MG CAPSULE PO SCH ×2 (08:13→16:20)
[2018-12-25] MEDS: METFORMIN 500 MG TABLET PO SCH ×2 (08:13→16:21)
[2018-12-25] MEDS: OLANZAPINE 2.5 MG TABLET PO SCH ×4 (08:13→21:05)
[2018-12-25] MEDS: AMLODIPINE BESYLATE 5 MG TABLET PO SCH ×2 (08:14→16:22)
[2018-12-25] MEDS: LOSARTAN POTASSIUM 50 MG TABLET PO SCH ×2 (08:14→16:22)
--- NOTE | 2018-12-25 08:24 | NUR ---
MS RN NOTES SEEN AND EVALUATED BY ED, WITH ORDER TO GIVE ATIVAN 1MG IV PRN [id number] FOR PT'S AGITATION AND RESTLESSNESS. WILL CONTINUE TO MONITOR.
[2018-12-25] MEDS: LORAZEPAM INJ 2 MG/ML VIAL IV PRN ×2 (08:58→20:28)
[2018-12-25] MEDS: MUPIROCIN OINT 2% 22 GM TUBE SCH ×2 (09:03→20:31)
[2018-12-25] MEDS: MUPIROCIN OINT 2% 22 GM TUBE TP SCH ×2 (09:03→20:31)
--- NOTE | 2018-12-25 13:58 | NUR ---
MS RN NOTES RECEIVED CALL FROM [facility], PT'S WOUND CULTURE OF HAND RESULTED OF MRSA. VERONIKA/PAUL MADE AWARE AND ED. PT ON TOPICAL BACTROBAN. WOUND TREATMENT DONE THIS MORNING. WILL CONTINUE TO MONITOR.
[2018-12-25] MEDS: CEFTRIAXONE 1 G in IV D5W 50 ML IV SCH (14:11)
[2018-12-25] MEDS: VANCOMYCIN 1 GM in IV D5W 250 ML IV SCH (15:00)
[2018-12-25 16:00] VITALS: BP 158/65
--- NOTE | 2018-12-25 19:05 | NUR ---
MS RN CLOSING NOTES PT REMAINS IN BED, INTERMITTENTLY DOZING OFF, EASILY AROUSED, A/O X1. TOLERATING ROOM AIR, WITH NO ACUTE RESPIRATORY DISTRESS NOTED. PT DENIES PAIN. PT DENIES ANY QUESTIONS AND CONCERNS AT THIS MOMENT. IVF NS AT 75ML/HR TO R HAND G22, INTACT AND FLUID INFUSING WEL;, AND PIV LEFT HAND, FLUSHED WITH NS, INTACT AND PATENT. PT KEPT COMFORTABLE. PT'S BED IN LOWEST LOCKED POSITION WITH SR X2. CALL LIGHT KEPT WITHIN REACH. WILL ENDORSE TO PCA ASSISTED LIVING NURSE FOR MEREDITH.
--- NOTE | 2018-12-25 19:15 | NUR ---
rn opening note. bedside report recieved from nevin bustos. patient seen in bed. on contact isolation. bed down locked [id number] patient alert oriented x1 in no apparent distress. breathing even and labored. bed alarm active iv alarms are active. door left open
[2018-12-25 20:00] VITALS: BP 156/64
[2018-12-25 20:07] VITALS: BP 156/64
--- NOTE | 2018-12-25 20:15 | NUR ---
RN REASSIGNMENT CHARGE NURSE TERRIE ADJUSTED ASSIGNMENT AND REPORT ENDORSED TO NATALI HOLLY TO CONTINUE CARE.
--- NOTE | 2018-12-25 21:00 | NUR ---
MS RN NOTES Wound care to bilateral hands done as ordered. Patient tolerated the procedure well.
[2018-12-25] MEDS: ZOLPIDEM TARTRATE 5 MG TABLET PO PRN (21:05)
[2018-12-25] MEDS: ATORVASTATIN 40 MG TABLET PO SCH (21:05)
[2018-12-26] MEDS: BLOOD SUGAR DIAGNOSTIC 1 EACH STRIP IN SCH ×4 (06:46→21:18)
[2018-12-26 06:52] LABS: CALCIUM, SERUM 8.9 mg/dL (8.5-10.1); CARBON DIOXIDE 25 mmol/L (21-32); CHLORIDE 107 mmol/L (98-107); CREATININE 0.6 mg/dL (0.6-1.3); GLUCOSE 141 mg/dL (74-106); POTASSIUM 4.1 mmol/L (3.5-5.1); SODIUM SERUM 142 mmol/L (136-145); UREA NITROGEN, BLOOD 16 mg/dL (7-18)
--- NOTE | 2018-12-26 07:18 | NUR ---
MS RN OPENING NOTES Patient asleep at this time, bilateral hands wrapped with kerlix. All nursing needs attended. On fall precaution. No new unusualities noted throughout the shift. Endorsed to the next shift.
--- NOTE | 2018-12-26 07:46 | NUR ---
MS RN OPENING NOTES RECEIVED PT IN BED, ASLEEP, EASILY AROUSED, A/O X1. TOLERATING ROOM AIR, WITH NO ACUTE RESPIRATORY DISTRESS NOTED. PT DENIES PAIN. PT DENIES ANY QUESTIONS AND CONCERNS AT THIS MOMENT. PIV TO LEFT HAND G20, FLUSHED WITH NS, INTACT AND PATENT. PT KEPT COMFORTABLE. PT'S BED IN LOWEST LOCKED POSITION WITH SR X2. CALL LIGHT KEPT WITHIN REACH. WILL CONTINUE PLAN OF CARE.
[2018-12-26 08:58] VITALS: BP 136/62
[2018-12-26] MEDS: DOCUSATE SODIUM 100 MG CAPSULE PO SCH ×2 (09:04→16:44)
[2018-12-26] MEDS: OLANZAPINE 2.5 MG TABLET PO SCH ×4 (09:04→21:31)
[2018-12-26] MEDS: AMLODIPINE BESYLATE 5 MG TABLET PO SCH ×2 (09:04→16:44)
[2018-12-26] MEDS: LOSARTAN POTASSIUM 50 MG TABLET PO SCH ×2 (09:04→16:44)
[2018-12-26] MEDS: CYANOCOBALAMIN 500 MCG TABLET PO SCH (09:05)
[2018-12-26] MEDS: LACTOBACILLUS RHAMNOSUS GG 1 EACH CAP.SPRINK PO SCH ×2 (09:05→16:43)
[2018-12-26] MEDS: PROSOURCE / PROSTAT (PYXIS) 30 ML UDC PO SCH ×3 (09:05→17:00)
[2018-12-26] MEDS: METFORMIN 500 MG TABLET PO SCH ×2 (09:05→16:43)
[2018-12-26] MEDS: THIAMINE HCL 100 MG TABLET PO SCH (09:05)
[2018-12-26] MEDS: LEVOTHYROXINE SODIUM 125 MCG TABLET PO SCH (09:07)
[2018-12-26] MEDS: MUPIROCIN OINT 2% 22 GM TUBE SCH ×2 (09:18→21:14)
[2018-12-26] MEDS: MUPIROCIN OINT 2% 22 GM TUBE TP SCH ×2 (09:18→21:15)
[2018-12-26] MEDS: VANCOMYCIN 1 GM in IV D5W 250 ML IV SCH (09:56)
[2018-12-26] MEDS: CEFTRIAXONE 1 G in IV D5W 50 ML IV SCH (14:58)
[2018-12-26] MEDS: LORAZEPAM INJ 2 MG/ML VIAL IV PRN (14:59)
[2018-12-26] MEDS: IV NS 0.9% 1,000 ML IV PRN (14:59)
[2018-12-26 17:12] VITALS: BP 162/65
--- NOTE | 2018-12-26 18:46 | NUR ---
MS RN CLOSING NOTES PT REMAINS IN BED, ASLEEP, EASILY AROUSED, A/O X1. TOLERATING ROOM AIR, WITH NO ACUTE RESPIRATORY DISTRESS NOTED. PT DENIES PAIN. PT DENIES ANY QUESTIONS AND CONCERNS AT THIS MOMENT. IVF NS AT 75ML/HR TO LEFT HAND G20, INTACT AND FLUID INFUSING WELL. ALL NEEDS AND CARE PROVIDED. PT KEPT COMFORTABLE. PT'S BED IN LOWEST LOCKED POSITION WITH SR X2. CALL LIGHT KEPT WITHIN REACH. WILL ENDORSE TO INCOMING NIGHT NURSE FOR MEREDITH.
--- NOTE | 2018-12-26 19:00 | NUR ---
MS RN OPENING NOTES Received patient awake on semi-Schafre's position on bed. With incoherent speech and unable to engage into meaningful conversation. On RA, no SOB/respiratory distress noted. With bilateral hand wrapped with Kerlix. With patent peripheral L hand G#20 with NS infusing well @ 75ml/hr as ordered, no s/sx of infiltration noted. On fall precaution. On enhanced contact precaution for MRSA wound and nares. Call light within reach. Will continue to monitor accordingly.
[2018-12-26 20:24] VITALS: BP 156/79
[2018-12-26] MEDS: ATORVASTATIN 40 MG TABLET PO SCH (21:31)
[2018-12-27 04:05] LABS: CALCIUM, SERUM 8.5 mg/dL (8.5-10.1); CARBON DIOXIDE 26 mmol/L (21-32); CHLORIDE 111 mmol/L (98-107); CREATININE 0.9 mg/dL (0.6-1.3); GLUCOSE 174 mg/dL (74-106); POTASSIUM 4.1 mmol/L (3.5-5.1); SODIUM SERUM 145 mmol/L (136-145); UREA NITROGEN, BLOOD 16 mg/dL (7-18)
[2018-12-27] MEDS: VANCOMYCIN 1 GM in IV D5W 250 ML IV SCH (05:00)
[2018-12-27] MEDS: IV NS 0.9% 1,000 ML IV PRN (05:17)
--- NOTE | 2018-12-27 06:52 | NUR ---
MS RN CLOSING NOTES Patient asleep at this time. All nursing needs attended, no new unusualities noted. On fall precaution. Call light within easy reach. Endorsed to the next shift.
[2018-12-27] MEDS: BLOOD SUGAR DIAGNOSTIC 1 EACH STRIP IN SCH ×2 (07:06→12:07)
--- NOTE | 2018-12-27 07:50 | NUR ---
MS RN OPENING NOTES Received Patient comfortable and sleeping in bed. A/O x 1. VS stable with no acute distress. Breathing even and unlabored on room air with no respiratory distress. No signs and symptoms of pain at this time. PIV on RIGHT HAND clean, dry, intact and flushing well. IVF NS running at 75ml/hr. BILATERAL HANDS noted clean, dry and open to air. Safety precautions in place. Contact Isolation in place. Bed locked and set in lowest position with side rails x 2 up. All needs rendered at this time. Will continue to monitor.
[2018-12-27 08:36] VITALS: BP 142/62
[2018-12-27] MEDS ORDERED: ERGOCALCIFEROL (VITAMIN D 2) 50,000 UNIT CAPSULE PO SCH (09:00)
[2018-12-27] MEDS: LEVOTHYROXINE SODIUM 125 MCG TABLET PO SCH (09:15)
[2018-12-27] MEDS: DOCUSATE SODIUM 100 MG CAPSULE PO SCH (09:16)
[2018-12-27] MEDS: MUPIROCIN OINT 2% 22 GM TUBE SCH (09:16)
[2018-12-27] MEDS: METFORMIN 500 MG TABLET PO SCH (09:17)
[2018-12-27] MEDS: LACTOBACILLUS RHAMNOSUS GG 1 EACH CAP.SPRINK PO SCH (09:17)
[2018-12-27] MEDS: LOSARTAN POTASSIUM 50 MG TABLET PO SCH (09:17)
[2018-12-27 09:18] VITALS: BP 142/62
[2018-12-27] MEDS: MUPIROCIN OINT 2% 22 GM TUBE TP SCH (09:18)
[2018-12-27] MEDS: CYANOCOBALAMIN 500 MCG TABLET PO SCH (09:18)
[2018-12-27] MEDS: PROSOURCE / PROSTAT (PYXIS) 30 ML UDC PO SCH ×2 (09:18→13:47)
[2018-12-27] MEDS: OLANZAPINE 2.5 MG TABLET PO SCH ×2 (09:18→13:47)
[2018-12-27] MEDS: AMLODIPINE BESYLATE 5 MG TABLET PO SCH (09:18)
[2018-12-27] MEDS: THIAMINE HCL 100 MG TABLET PO SCH (09:18)
--- NOTE | 2018-12-27 14:07 | NUR ---
MS FOUR CORNER FORMER MACHINE OPERATOR NOTES Patient discharged for [facility] at [facility] time. VS stable with no acute distress. Breathing even and unlabored on room air with no respiratory distress. Skin assessment pictures completed and placed in chart. Patient is A/O x 1 with history of Dementia and Psychosis. Medication reconciliation and discharge orders given to Ambulance Transport. Report given to Luzma HOLLY from SNF. All belongings with Patient. Patient will follow up with Primary MD from SNF. Daughter notified.
== END 2018-12-27 14:10 | DRG 602 ==
LOC: ER 14:19 → MED 16:23
PROVIDERS: ADMIT Internal Medicine; ATTEND Internal Medicine
DX: L03.114 Cellulitis of left upper limb (principal); G93.41 Metabolic encephalopathy; N17.0 Acute kidney failure with tubular necrosis; F23 Brief psychotic disorder; L03.113 Cellulitis of right upper limb; D63.8 Anemia in other chronic diseases classified elsewhere; E03.9 Hypothyroidism, unspecified; E11.9 Type 2 diabetes mellitus without complications; E66.9 Obesity, unspecified; E78.5 Hyperlipidemia, unspecified; E83.42 Hypomagnesemia; F03.90 Unspecified dementia, unspecified severity, without behavioral disturbance, psychotic disturbance, mood disturbance, and anxiety; I10 Essential (primary) hypertension; I27.20 Pulmonary hypertension, unspecified; K21.9 Gastro-esophageal reflux disease without esophagitis; Z87.891 Personal history of nicotine dependence; Z68.29 Body mass index [BMI] 29.0-29.9, adult; L73.9 Follicular disorder, unspecified; L01.01 Non-bullous impetigo; B35.4 Tinea corporis; L22 Diaper dermatitis; Z22.322 Carrier or suspected carrier of Methicillin resistant Staphylococcus aureus; Z79.84 Long term (current) use of oral hypoglycemic drugs
CPT/HCPCS: 36415; 80048-TC; 80053-TC; 80076-TC; 80202-TC; 82962-TC; 83735-TC; 84100-TC; 84439-TC; 84443-TC; 84481; 85025-TC; 85730-TC; 87040-TC; 87070-TC; 87081-TC; 87186-TC; A6402; A6403; G0378; J0696; J2060; J3370; J3475; J7030; J7060

== ENCOUNTER 2019-02-05 17:58 | Emergency (ER) | payer MEDICARE, MEDICAID ==
[~2019-02-05] VITALS: Ht 165.1 cm; Wt 75.3 kg
[~2019-02-05 17:58] MED LIST changes: +AMLO5TAB9 PO; -ASCO500T9 PO; +BLOO-668 IN; -CEPH-569 PO; +DOCU100C36 PO; -DOCU250C14 PO; -DONE5TAB34 PO; -MAG30ORA PO; -MULT1TAB73 PO; -NA P133E RC; +NUTR237L18 PO; +OLAN2.5T3 PO; -OLAN5TAB6 PO; +OLAN7.5T3 PO; -POLY17PO4 PO; -THIA100T70 PO; +THIA100T74 PO
--- NOTE | 2019-02-05 18:22 | NUR ---
WINSTON, SENT HERE FROM SNF FOR ABD PAIN, -N/V/D. DENIES PAIN AT THIS TIME. PATIENT A/OX1, CONFUSED, BREATHING EVEN AND UNLABORED, NO SOB NOTED. ATTACHED TO THE MONITOR.
[2019-02-05] MEDS ORDERED: IV NS 0.9% 1,000 ML BAG IV ONE (18:30)
[2019-02-05 18:43] LABS: BASOPHILS % (AUTO) 0.4 % (0.0-2.0); EOSINOPHILS % (AUTO) 5.9 % (0.0-6.0); HEMATOCRIT 35 % (33-45); HEMOGLOBIN 11.6 g/dL (11.5-14.8); LYMPHOCYTES # (AUTO) 2.1 /CMM (0.8-4.8); LYMPHOCYTES % (AUTO) 28.5 % (20.0-44.0); MEAN CORPUSCULAR HGB CONC 33 g/dl (31.0-36.0); MEAN CORPUSCULAR VOLUME 87 fL (82-100); MONOCYTES # (AUTO) 0.6 /CMM (0.1-1.30); MONOCYTES % (AUTO) 7.6 % (2.0-12.0); NEUTROPHILS # (AUTO) 4.2 /CMM (1.8-8.9); NEUTROPHILS % (AUTO) 57.6 % (43.0-81.0); PLATELET COUNT (AUTO) 259 /CMM (150-450); RED BLOOD CELL COUNT(AUTO) 4.04 MIL/uL (4.0-5.2); WHITE BLOOD COUNT (AUTO) 7.4 K/uL (4.3-11.0)
--- NOTE | 2019-02-05 18:45 | NUR ---
IV LINE ESTABLISHED, BLOOD SAMPLES SENT TO LAB.
--- NOTE | 2019-02-05 18:49 | NUR ---
STRAIGHT CATH DONE FOR UA SAMPLE. SENT TO LAB.
[2019-02-05 18:52] LABS: CALCIUM, SERUM 9.2 mg/dL (8.5-10.1); CARBON DIOXIDE 28 mmol/L (21-32); CHLORIDE 106 mmol/L (98-107); CREATININE 0.9 mg/dL (0.6-1.3); GLUCOSE 110 mg/dL (74-106); POTASSIUM 4.6 mmol/L (3.5-5.1); SODIUM SERUM 143 mmol/L (136-145); UREA NITROGEN, BLOOD 31 mg/dL (7-18)
[2019-02-05 18:58] LABS: ALANINE AMINOTRANSFERASE 16 U/L (12-78); ALBUMIN 3.4 g/dL (3.4-5.0); ALKALINE PHOSPHATASE 89 U/L (46-116); ASPARTATE AMINOTRANSFERASE 11 U/L (15-37); BILIRUBIN,DIRECT 0.1 mg/dL (0.0-0.2); BILIRUBIN,TOTAL 0.2 mg/dL (0.2-1.0); LIPASE 518 U/L (73-393); TOTAL PROTEIN, SERUM 7.4 g/dL (6.4-8.2)
[2019-02-05 19:04] LABS: APPEARANCE,URINE Slightly Cloudy (CLEAR); BILIRUBIN,URINE Negative (NEGATIVE); BLOOD, URINE Negative Ery/uL (NEGATIVE); COLOR,URINE Dark (YELLOW); KETONES,URINE Trace (NEGATIVE); LEUKOCYTE ESTERASE ,URINE Small (NEGATIVE); NITRITE, URINE Positive (NEGATIVE); PROTEIN,URINE Negative (NEGATIVE); UGLUCOSE Negative (NEGATIVE); UROBILINOGEN,URINE 0.2 EU/dL (0.2)
--- NOTE | 2019-02-05 19:07 | NUR ---
PT BROUGHT BY RADIOLOGY TO CT
[2019-02-05 19:20] LABS: BACTERIA,URINE Many /HPF (None Seen); SQUAMOUS EPITHELIAL CELL,UR Few /HPF (None Seen)
--- NOTE | 2019-02-05 19:20 | NUR ---
PT RETURNED FROM CT
[2019-02-05 19:21] LABS: RBC,URINE 0-2 /HPF (0-2)
[2019-02-05] MEDS ORDERED: methylPREDNISolone SOD SUCC 125 MG/2ML VIAL IV ONE (19:30)
[2019-02-05] MEDS ORDERED: FAMOTIDINE/PF INJ 20 MG/2 ML VIAL IV ONE (19:30)
--- NOTE | 2019-02-05 19:43 | NUR ---
PT RESTING COMFORTABLY IN BED. VITAL SIGNS STABLE. NO ACUTE DISTRESS NOTED AT THIS TIME, WILL CONTINUE TO MONITOR. DAUGHTER AT BEDSIDE
--- NOTE | 2019-02-05 20:26 | NUR ---
CALLED [facility]. ETA 20 MIN. TRIP NUMBER: [id number]
--- NOTE | 2019-02-05 20:56 | NUR ---
GAVE REPORT TO ISABEL FROM [facility] AND TO [facility] FOR TRANSPORTATION MEREDITH
[2019-02-05 21:19] VITALS: BP 160/68
== END 2019-02-05 21:20 | disposition home or self-care (01) ==
LOC: ER 18:03
DX: R00.1 Bradycardia, unspecified (principal); N39.0 Urinary tract infection, site not specified; K59.00 Constipation, unspecified; R79.89 Other specified abnormal findings of blood chemistry; F03.90 Unspecified dementia, unspecified severity, without behavioral disturbance, psychotic disturbance, mood disturbance, and anxiety; I10 Essential (primary) hypertension; E03.9 Hypothyroidism, unspecified; E78.5 Hyperlipidemia, unspecified; E11.9 Type 2 diabetes mellitus without complications; F29 Unspecified psychosis not due to a substance or known physiological condition; Z88.8 Allergy status to other drugs, medicaments and biological substances; Z79.899 Other long term (current) drug therapy; Z79.84 Long term (current) use of oral hypoglycemic drugs
CPT/HCPCS: 36415; 71045; 74176; 80048; 80076; 81001; 83690; 84484; 85025; 85730; 87086; 93005; 99284; J7030; 81000-TC; 87186-TC

== ENCOUNTER 2019-07-12 18:08 | Inpatient (IN) | payer MEDICARE, MEDICAID ==
[~2019-07-12] VITALS: Ht 175.3 cm; Wt 84.4 kg
[2019-07-12] MEDS ORDERED: LORAZEPAM INJ 2 MG/ML VIAL ONE (18:28)
[2019-07-12 18:30] LABS: BASOPHILS % (AUTO) 0.6 % (0.0-2.0); EOSINOPHILS % (AUTO) 5.3 % (0.0-6.0); HEMATOCRIT 35 % (33-45); HEMOGLOBIN 11.2 g/dL (11.5-14.8); LYMPHOCYTES # (AUTO) 2.4 /CMM (0.8-4.8); LYMPHOCYTES % (AUTO) 34.7 % (20.0-44.0); MEAN CORPUSCULAR HGB CONC 32 g/dl (31.0-36.0); MEAN CORPUSCULAR VOLUME 89 fL (82-100); MONOCYTES # (AUTO) 0.6 /CMM (0.1-1.30); MONOCYTES % (AUTO) 8.6 % (2.0-12.0); NEUTROPHILS # (AUTO) 3.5 /CMM (1.8-8.9); NEUTROPHILS % (AUTO) 50.8 % (43.0-81.0); PLATELET COUNT (AUTO) 193 /CMM (150-450); RED BLOOD CELL COUNT(AUTO) 3.91 MIL/uL (4.0-5.2); WHITE BLOOD COUNT (AUTO) 6.9 K/uL (4.3-11.0)
[2019-07-12] MEDS ORDERED: LORAZEPAM INJ 2 MG/ML VIAL IV ONE (18:30)
--- NOTE | 2019-07-12 18:30 | NUR ---
weakness x 1 day s/p fall yesterday,-ko, denies any pain. Patient a/ox1-2, breathing even and unlabored, no sob noted, changed into gown, attached to the program mgr.
--- NOTE | 2019-07-12 18:42 | NUR ---
iv line established on left ac g20. blood drawn and sent to lab. straight catheter done via sterile technique.
[2019-07-12 18:47] LABS: ALANINE AMINOTRANSFERASE 15 U/L (12-78); ALBUMIN 3.3 g/dL (3.4-5.0); ALKALINE PHOSPHATASE 73 U/L (46-116); ASPARTATE AMINOTRANSFERASE 8 U/L (15-37); BILIRUBIN,TOTAL 0.2 mg/dL (0.2-1.0); CALCIUM, SERUM 9.1 mg/dL (8.5-10.1); CARBON DIOXIDE 30 mmol/L (21-32); CHLORIDE 109 mmol/L (98-107); GLUCOSE 106 mg/dL (74-106); POTASSIUM 5.2 mmol/L (3.5-5.1); SODIUM SERUM 145 mmol/L (136-145); TOTAL PROTEIN, SERUM 6.7 g/dL (6.4-8.2); UREA NITROGEN, BLOOD 38 mg/dL (7-18)
[2019-07-12 18:53] LABS: APPEARANCE,URINE Cloudy (CLEAR); BILIRUBIN,URINE Negative (NEGATIVE); BLOOD, URINE Trace-intact Ery/uL (NEGATIVE); COLOR,URINE Yellow (YELLOW); KETONES,URINE Negative (NEGATIVE); LEUKOCYTE ESTERASE ,URINE Moderate (NEGATIVE); NITRITE, URINE Positive (NEGATIVE); PROTEIN,URINE Negative (NEGATIVE); UGLUCOSE Negative (NEGATIVE); UROBILINOGEN,URINE 0.2 EU/dL (0.2)
[2019-07-12 18:58] LABS: SQUAMOUS EPITHELIAL CELL,UR Few /HPF (None Seen); WBC,URINE 21-50 /HPF (0-3)
[2019-07-12] MEDS ORDERED: IV NS 0.9% 1,000 ML BAG IV ONE (19:00)
[2019-07-12 19:01] LABS: BACTERIA,URINE 2+ /HPF (None Seen)
--- NOTE | 2019-07-12 19:05 | NUR ---
patient taken to ct.
--- NOTE | 2019-07-12 19:13 | NUR ---
REPORT GIVEN TO ESHA HOLLY.
[2019-07-12 19:16] LABS: THYROID STIMULATING HORMONE 6.162 uIU/mL (0.358-3.74)
[2019-07-12] MEDS ORDERED: LEVOFLOXACIN 750 MG /D5W 150ML PIGGYBACK IV ONE (19:30)
[2019-07-12] MEDS ORDERED: LEVOFLOXACIN 750 MG /D5W 150ML 150 ML IV ONE (19:33)
[2019-07-12 20:00] VITALS: BP 161/92
[2019-07-12] MEDS ORDERED: Z GUARD REMEDY 2 OZ OINT TP PRN (21:00)
[2019-07-12] MEDS ORDERED: MAGNESIUM HYDROXIDE 30 ML UDC PO PRN (21:00)
[2019-07-12] MEDS ORDERED: CLONIDINE HCL 0.1MG/24H PTWK 1 EA PATCH TD SCH (21:00)
[2019-07-12] MEDS ORDERED: ACETAMINOPHEN 325 MG TABLET PO PRN ×3 (21:00→21:30)
[2019-07-12] MEDS ORDERED: ONDANSETRON HCL/PF 4 MG/2 ML VIAL IVP PRN (21:00)
[2019-07-12] MEDS ORDERED: ZOLPIDEM TARTRATE 5 MG TABLET PO PRN (21:00)
[2019-07-12] MEDS ORDERED: MAG HYDROX/AL HYDROX/SIMETH 30 ML UDC PO PRN (21:00)
[2019-07-12] MEDS ORDERED: HYDROCODONE/APAP 5/325MG 1 EACH TABLET PO PRN (21:00)
--- NOTE | 2019-07-12 21:02 | NUR ---
PATIENT CHANGED AND CLEANED
--- NOTE | 2019-07-12 21:03 | NUR ---
GIVEN REPORT TANGELA
--- NOTE | 2019-07-12 21:30 | NUR ---
RN OPEN NOTES RECEIVED PATIENT FROM ER VIA [facility]. A/OX1. NO SIGNS OF DISTRESS OR DISCOMFORT. BREATHING EVEN AND UNLABORED. IV ACCESS IN LAC, PATENT AND INTACT, NO SIGNS OF REDNESS OR INFILTRATION. ORIENTED PATIENT TO UNIT AND ROOM. BED IN LOW LOCKED POSITION WITH SIDE RAILS X3. CALL LIGHT WITHIN REACH. SITTER AT PATIENT BEDSIDE. WILL CONTINUE TO MONITOR.
[2019-07-12] MEDS ORDERED: MAGNESIUM HYDROXIDE 30 ML UDC PO SCH (22:00)
--- NOTE | 2019-07-12 22:15 | NUR ---
RN NOTES SPOKE WITH NAM CHARGE NURSE AT PATIENT FACILITY [facility] REGARDING PATIENT ARRIVING WITH GENERALIZED RASH. PER CN PATIENT WAS SEEN BY PATENT ENGINEER AND DIAGNOSED WITH DERMATITIS. CHARGE NURSE MADE AWARE. WOUND CONSULT ORDERED. WILL CONTINUE TO MONITOR.
[2019-07-12] MEDS: IV NS 0.9% 1,000 ML IV SCH (22:19)
[2019-07-12] MEDS: ATORVASTATIN 40 MG TABLET PO SCH (22:20)
[2019-07-12] MEDS: BLOOD SUGAR DIAGNOSTIC 1 EACH STRIP IN SCH (22:33)
--- NOTE | 2019-07-13 06:48 | NUR ---
RN CLOSING NOTES PATIENT RESTING COMFORTABLY IN BED, WITH SITTER AT BEDSIDE. A/OX1. NO SIGNS OF DISTRESS OR DISCOMFORT. BREATHING EVEN AND UNLABORED. IV ACCESS IN LAC WITH NS INFUSING, PATENT AND INTACT, NO SIGNS OF REDNESS OR INFILTRATION. ALL NEEDS MET. NO SIGNIFICANT CHANGES THROUGH THE NIGHT. BED IN LOW LOCKED POSITION WITH SIDE RAILS X2. CALL LIGHT WITHIN REACH. WILL ENDORSE TO AM SHIFT FOR MEREDITH.
[2019-07-13 06:51] LABS: BASOPHILS % (AUTO) 0.7 % (0.0-2.0); HEMATOCRIT 35 % (33-45); HEMOGLOBIN 11.4 g/dL (11.5-14.8); LYMPHOCYTES % (AUTO) 27.7 % (20.0-44.0); MEAN CORPUSCULAR HGB CONC 33 g/dl (31.0-36.0); MEAN CORPUSCULAR VOLUME 88 fL (82-100); MONOCYTES # (AUTO) 0.8 /CMM (0.1-1.30); MONOCYTES % (AUTO) 10.3 % (2.0-12.0); NEUTROPHILS # (AUTO) 4.1 /CMM (1.8-8.9); NEUTROPHILS % (AUTO) 56.3 % (43.0-81.0); PLATELET COUNT (AUTO) 177 /CMM (150-450); RED BLOOD CELL COUNT(AUTO) 3.95 MIL/uL (4.0-5.2); WHITE BLOOD COUNT (AUTO) 7.3 K/uL (4.3-11.0)
[2019-07-13 07:06] LABS: CALCIUM, SERUM 8.6 mg/dL (8.5-10.1); CREATININE 0.8 mg/dL (0.6-1.3); MAGNESIUM 1.7 mg/dL (1.8-2.4); PHOSPHORUS 2.4 mg/dL (2.5-4.9); POTASSIUM 4.3 mmol/L (3.5-5.1)
--- NOTE | 2019-07-13 07:10 | NUR ---
MS RN NOTES PATIENT IN BED ALERT ORIENTED X 1 WITH CONFUSION. SITTER AT BEDSIDE. NO ACUTE DISTRESS NOTED. BREATHING UNLABORED. IV ACCESS PATENT AND INTACT. NO REDNESS OR SWELLING NOTED. HOB ELEVATED. SAFETY MEASURES IN PLACE. CALL LIGHT WITHIN REACH. WILL CONTINUE TO MONITOR ACCORDINGLY.
[2019-07-13] MEDS: LEVOTHYROXINE SODIUM 125 MCG TABLET PO SCH (07:59)
[2019-07-13] MEDS: BLOOD SUGAR DIAGNOSTIC 1 EACH STRIP IN SCH ×4 (07:59→21:29)
[2019-07-13] MEDS: IV NS 0.9% 1,000 ML IV SCH (08:38)
[2019-07-13] MEDS: PROSOURCE / PROSTAT (PYXIS) 30 ML UDC PO SCH ×5 (09:00→17:03)
[2019-07-13] MEDS: OLANZAPINE 2.5 MG TABLET PO SCH ×4 (09:14→21:30)
[2019-07-13] MEDS: LACTOBACILLUS RHAMNOSUS GG 1 EACH CAP.SPRINK PO SCH ×2 (09:14→17:03)
[2019-07-13] MEDS: CYANOCOBALAMIN 500 MCG TABLET PO SCH (09:14)
[2019-07-13] MEDS: THIAMINE HCL 100 MG TABLET PO SCH (09:15)
[2019-07-13] MEDS: LOSARTAN POTASSIUM 50 MG TABLET PO SCH ×2 (09:15→17:06)
[2019-07-13] MEDS: AMLODIPINE BESYLATE 5 MG TABLET PO SCH ×2 (09:15→17:06)
[2019-07-13] MEDS: DOCUSATE SODIUM 100 MG CAPSULE PO SCH ×2 (09:16→17:00)
[2019-07-13] MEDS: METFORMIN 500 MG TABLET PO SCH ×2 (09:17→17:53)
--- NOTE | 2019-07-13 10:50 | NUR ---
WOUND CARE CONSULT: PT PRESENTS WITH BRUISING TO ARMS WITH DRY ABRASIONS, SCRATCH CLAROS TO RT BUTTOCK AND PERINEAL REDNESS, INCONTINENCE, PRESENT ON ADMISSION. PT IS VERY CONFUSED. SITTER AT BEDSIDE. RECOMMENDATIONS MADE FOR SKIN PROTECTION AND SKIN CARE. DISCUSSED WITH NURSING STAFF. WILL SEE PRN. [place] IN AGREEMENT WITH PLAN OF CARE. CURRENT ROBY SCORE IS 14. Addendum: 07/13/19 at 1051 by ARLENE GARLAND WNDNU Amended: Links added.
[2019-07-13] MEDS: Magnesium 1GM/D5W 100ML PREMIX 100 ML IV SCH ×2 (12:21→13:31)
[2019-07-13] MEDS ORDERED: K PHOS NEUTRAL 250 MG TABLET PO ONE (13:00)
[2019-07-13] MEDS: HEPARIN SODIUM, PORCINE 5000 UNITS/1 ML VIAL SQ SCH ×2 (13:08→21:38)
--- NOTE | 2019-07-13 18:47 | NUR ---
MS RN NOTES PATIENT IN BED ALERT ORIENTED X 1. SITTER AT BEDSIDE. NO ACUTE DISTRESS NOTED. BREATHING UNLABORED. IV ACCESS PATENT AND INTACT, NO REDNESS OR SWELLING NOTED. HOB ELEVATED. NEEDS ATTENDED AND ANTICIPATED. KEPT CLEAN DRY AND COMFORTABLE. SAFETY MEASURES IN PLACE. CALL LIGHT WITHIN REACH. WILL ENDORSE TO NIGHT NURSE FOR CONTINUITY OF CARE.
--- NOTE | 2019-07-13 19:45 | NUR ---
MS RN NOTES: RECEIVED PATIENT IN BED ALERT AND ORIENTED X 1 WITH EPISODES OF CONFUSION. SITTER IS PRESENT AT BEDSIDE. ON ROOM AIR, NO SOB, NO ACUTE DISTRESS NOTED. BREATHING EVEN AND UNLABORED. IV ACCESS IS PATENT AND INTACT. NO REDNESS OR SWELLING NOTED. HOB ELEVATED. SAFETY MEASURES ARE IN PLACE. BED IS IN LOW LOCKED POSITION, WITH SIDE RAILS UP X2. CALL LIGHT WITHIN REACH. WILL CONTINUE TO MONITOR PATIENT ACCORDINGLY.
[2019-07-13 20:00] VITALS: BP 165/81
[2019-07-13] MEDS: ATORVASTATIN 40 MG TABLET PO SCH (21:30)
[2019-07-13] MEDS: CEFTRIAXONE 1 G in IV D5W 50 ML IV SCH (21:42)
[2019-07-14] MEDS: BLOOD SUGAR DIAGNOSTIC 1 EACH STRIP IN SCH ×4 (06:08→21:51)
--- NOTE | 2019-07-14 06:43 | NUR ---
MS RN CLOSING NOTES: PATIENT SLEEPING IN BED, STABLE AND AROUSABLE WITH TACTILE AND VERBAL STIMULI. A/O X1 WITH EPISODES OF CONFUSION. SITTER PRESENT AT BEDSIDE. NO SIGNIFICANT CHANGES THROUGH THE NIGHT. NO SOB NOTED. NO SIGNS OF DISTRESS OR DISCOMFORT. ON ROOM AIR, BREATHING EVEN AND UNLABORED. IV ACCESS IN RIGHT HAND #24G INTACT AND PATENT, NO SIGNS OF REDNESS OR INFILTRATION. BOWEL MOVEMENT 5 TIMES, SOFT FORMED STOOLS NOTED DURING STRUCTURAL ANALYSIS ENGINEER. KEPT PATIENT CLEAN AND DRY AT ALL TIMES. ALL NEEDS MET AND PROVIDED. SAFETY MEASURES KEPT IN PLACE THROUGHOUT THE SHIFT. BED IN LOW, LOCKED POSITION WITH SIDE RAILS X2. CALL LIGHT WITHIN REACH. WILL ENDORSE TO MORNING SHIFT NURSE FOR MEREDITH.
[2019-07-14 07:04] LABS: BASOPHILS # (AUTO) 0.1 /CMM (0.0-0.2); BASOPHILS % (AUTO) 0.8 % (0.0-2.0); EOSINOPHILS % (AUTO) 5.3 % (0.0-6.0); HEMATOCRIT 37 % (33-45); HEMOGLOBIN 12.2 g/dL (11.5-14.8); LYMPHOCYTES # (AUTO) 1.6 /CMM (0.8-4.8); LYMPHOCYTES % (AUTO) 25.7 % (20.0-44.0); MEAN CORPUSCULAR HGB CONC 33 g/dl (31.0-36.0); MEAN CORPUSCULAR VOLUME 87 fL (82-100); MONOCYTES # (AUTO) 0.6 /CMM (0.1-1.30); MONOCYTES % (AUTO) 9.5 % (2.0-12.0); NEUTROPHILS # (AUTO) 3.8 /CMM (1.8-8.9); NEUTROPHILS % (AUTO) 58.7 % (43.0-81.0); PLATELET COUNT (AUTO) 141 /CMM (150-450); RED BLOOD CELL COUNT(AUTO) 4.29 MIL/uL (4.0-5.2); WHITE BLOOD COUNT (AUTO) 6.4 K/uL (4.3-11.0)
--- NOTE | 2019-07-14 07:15 | NUR ---
MS RN NOTES PATIENT IN BED EYES CLOSED, EASY TO AROUSE, RESPOND TO VERBAL AND TACTILE STIMULI. SITTER AT BEDSIDE. NO ACUTE DISTRESS NOTED. BREATHING UNLABORED. IV ACCESS PATENT AND INTACT. NO REDNESS OR SWELLING NOTED. HOB ELEVATED. SAFETY MEASURES IN PLACE. CALL LIGHT WITHIN REACH. WILL CONTINUE TO MONITOR ACCORDINGLY.
[2019-07-14 07:42] LABS: CALCIUM, SERUM 8.8 mg/dL (8.5-10.1); CREATININE 0.8 mg/dL (0.6-1.3); PHOSPHORUS 3.2 mg/dL (2.5-4.9); POTASSIUM 4.2 mmol/L (3.5-5.1)
[2019-07-14] MEDS: LEVOTHYROXINE SODIUM 125 MCG TABLET PO SCH (07:43)
[2019-07-14] MEDS: METFORMIN 500 MG TABLET PO SCH ×2 (08:26→17:32)
[2019-07-14] MEDS: DOCUSATE SODIUM 100 MG CAPSULE PO SCH ×2 (09:38→16:08)
[2019-07-14] MEDS: LACTOBACILLUS RHAMNOSUS GG 1 EACH CAP.SPRINK PO SCH ×2 (09:39→16:08)
[2019-07-14] MEDS: LOSARTAN POTASSIUM 50 MG TABLET PO SCH ×2 (09:39→16:08)
[2019-07-14] MEDS: CYANOCOBALAMIN 500 MCG TABLET PO SCH (09:39)
[2019-07-14] MEDS: THIAMINE HCL 100 MG TABLET PO SCH (09:39)
[2019-07-14] MEDS: AMLODIPINE BESYLATE 5 MG TABLET PO SCH ×2 (09:39→16:08)
[2019-07-14] MEDS: PROSOURCE / PROSTAT (PYXIS) 30 ML UDC PO SCH ×3 (09:39→17:31)
[2019-07-14] MEDS: OLANZAPINE 2.5 MG TABLET PO SCH ×4 (09:40→21:45)
[2019-07-14] MEDS: HEPARIN SODIUM, PORCINE 5000 UNITS/1 ML VIAL SQ SCH ×2 (09:41→21:50)
[2019-07-14] MEDS ORDERED: CEPH-570 PO (11:48)
[2019-07-14 20:00] VITALS: BP 153/86
[2019-07-14] MEDS: ATORVASTATIN 40 MG TABLET PO SCH (21:45)
[2019-07-14] MEDS: CEFTRIAXONE 1 G in IV D5W 50 ML IV SCH (21:55)
[2019-07-14 22:00] VITALS: BP 153/86
--- NOTE | 2019-07-14 22:00 | NUR ---
MS HOLLY OPENING NOTES: RECEIVED PATIENT AT 2200 FROM PELON HOLLY FROM REGISTRY. PATIENT IS AWAKE IN BED. A/O X1 WITH EPISODES OF CONFUSION. STABLE VITAL SIGNS. BP 153/86, HR 88, RR 18, TEMP 98, O2 SAT 97%. ON ROOM AIR, BRETAHING EVEN AND UNLABORED. HOB ELEVATED. NO SOB, NO S/S OF ACUTE DISTRESS, NO COMPLAINS OF PAIN OR DISCOMFORT AT THIS TIME. SITTER PRESENT AT BEDSIDE. IV ACCESS LOCATED IN THE LEFT AC #20G. INTACT, PATENT AND FLUSHING WELL. ALL DUE MEDICATIONS ARE GIVEN ORDERED. TOLERATED WELL. BLOOD SUGAR OF 97. ALL NEEDS ATTENDED AT THIS TIME. SAFETY MEASURES ARE KEPT IN PLACE. BED IS IN LOW LOCKED POSITION WITH SIDE RAILS UP X2. CALL LIGHT IS WITHIN REACH. WILL CONTINUE TO MONITOR PATIENT ACCORDINGLY. Addendum: 07/14/19 at 2235 by FREDY ROGERS RN IV ACCESS ON THE RIGHT HAND #24G WRAPPED WITH GAUZE TO PREVENT PATIENT FROM PULLING OUT THE IV. NO REDNESS. NO S/S OF INFILTRATION. INTACT, PATENT, AND FLUSHING WELL. SITTER PRESENT AT BEDSIDE. WILL CONTINUE TO MONITOR.
--- NOTE | 2019-07-15 06:54 | NUR ---
MS RN CLOSING NOTES: PATIENT AWAKE IN BED, IN STABLE CONDITION. A/O X1 WITH EPISODES OF CONFUSION. SITTER PRESENT AT BEDSIDE. NO SIGNIFICANT CHANGES IN CONDITION. ON ROOM AIR, NO SOB NOTED. NO SIGNS OF DISTRESS OR DISCOMFORT. ON ROOM AIR, BREATHING EVEN AND UNLABORED. IV ACCESS IN RIGHT HAND #24G INTACT AND PATENT, NO SIGNS OF REDNESS OR INFILTRATION. KEPT PATIENT CLEAN AND DRY AT ALL TIMES. ALL NEEDS MET AND PROVIDED. SAFETY MEASURES KEPT IN PLACE THROUGHOUT THE SHIFT. BED IN LOW, LOCKED POSITION WITH SIDE RAILS X2. CALL LIGHT WITHIN REACH. WILL ENDORSE TO MORNING SHIFT NURSE FOR MEREDITH.
--- NOTE | 2019-07-15 07:30 | NUR ---
MS RN OPENING NOTES RECEIVED PATIENT IN BED, ASLEEP, AROUSABLE TO VERBAL AND TACTILE STIMULI. HOB ELEVATED. NO SOB. DENIES ANY C/O PAIN NOR DISCOMFORT. RT HAND SL #24 INTACT AND PATENT WITHOUT S/S OF COMPLICATIONS. SITTER AT BEDSIDE. BED IN LOWEST POSITION, LOCKED. BED SIDERAILS UP X2. BED ALARM ON. CALL LIGHT WITHIN REACH.
[2019-07-15] MEDS: BLOOD SUGAR DIAGNOSTIC 1 EACH STRIP IN SCH ×2 (08:06→12:36)
[2019-07-15] MEDS: LEVOTHYROXINE SODIUM 125 MCG TABLET PO SCH (08:06)
[2019-07-15] MEDS: METFORMIN 500 MG TABLET PO SCH (08:27)
[2019-07-15] MEDS: DOCUSATE SODIUM 100 MG CAPSULE PO SCH (08:28)
[2019-07-15] MEDS: THIAMINE HCL 100 MG TABLET PO SCH (08:28)
[2019-07-15] MEDS: CYANOCOBALAMIN 500 MCG TABLET PO SCH (08:28)
[2019-07-15] MEDS: LACTOBACILLUS RHAMNOSUS GG 1 EACH CAP.SPRINK PO SCH (08:28)
[2019-07-15] MEDS: PROSOURCE / PROSTAT (PYXIS) 30 ML UDC PO SCH (08:28)
[2019-07-15] MEDS: HEPARIN SODIUM, PORCINE 5000 UNITS/1 ML VIAL SQ SCH (08:31)
[2019-07-15 09:00] VITALS: BP 98/58
[2019-07-15] MEDS: AMLODIPINE BESYLATE 5 MG TABLET PO SCH (09:00)
[2019-07-15] MEDS: LOSARTAN POTASSIUM 50 MG TABLET PO SCH (09:00)
--- NOTE | 2019-07-15 09:00 | NUR ---
MS RN NOTES HELD BP MEDS, B/P 98/58
[2019-07-15] MEDS: OLANZAPINE 2.5 MG TABLET PO SCH (10:06)
--- NOTE | 2019-07-15 13:30 | NUR ---
MS RN CLOSING/DISCHARGE NOTES ALERT AND ORIENTED X1. PATIENT CONFUSED WITH EPISODE OF COMBATIVENESS AND YELLING AND SCREAMING DURING ADL CARE. FOR DISCHARGE WITH DISCHARGE INSTRUCTIONS, EDUCATION GIVEN TO RECEIVING FACILITY ([facility]) AND REPORT GIVEN AND SPOKE TO LEONEL. NO SOB OBSERVED. DENIES ANY C/O PAIN NOR DISCOMFORT AT THIS TIME. ALL BELONGINGS ACCOUNTED FOR. IV ACCES REMOVED WITH CATHETER TIP INTACT WITH GAUZE DRESSING IN PLACE. PATIENT LEFT VIA GURNEY [facility]IA [facility] BY 2 EMT PERSONNEL. LEFT IN STABLE CONDITION.
[2019-07-18] MEDS ORDERED: ERGOCALCIFEROL (VITAMIN D 2) 50,000 UNIT CAPSULE PO SCH (09:00)
== END 2019-07-15 13:57 | DRG 690 ==
LOC: ER 18:11 → MED 20:55
PROVIDERS: ADMIT Family Medicine
DX: N30.01 Acute cystitis with hematuria (principal); E44.1 Mild protein-calorie malnutrition; D63.8 Anemia in other chronic diseases classified elsewhere; E03.9 Hypothyroidism, unspecified; E86.9 Volume depletion, unspecified; N13.9 Obstructive and reflux uropathy, unspecified; E87.5 Hyperkalemia; Z87.891 Personal history of nicotine dependence; E88.09 Other disorders of plasma-protein metabolism, not elsewhere classified; F03.90 Unspecified dementia, unspecified severity, without behavioral disturbance, psychotic disturbance, mood disturbance, and anxiety; I10 Essential (primary) hypertension; E53.9 Vitamin B deficiency, unspecified; Z87.440 Personal history of urinary (tract) infections; B96.1 Klebsiella pneumoniae [K. pneumoniae] as the cause of diseases classified elsewhere; Z79.84 Long term (current) use of oral hypoglycemic drugs; E11.9 Type 2 diabetes mellitus without complications; Z91.81 History of falling; Z68.27 Body mass index [BMI] 27.0-27.9, adult
CPT/HCPCS: 36415; 70450-TC; 71045-TC; 72170-TC; 73564-TC; 80048-TC; 80061-TC; 80076-TC; 81000-TC; 82962-TC; 83735-TC; 84100-TC; 84443-TC; 84484-TC; 85025-TC; 87081-TC; 87086-TC; 87186-TC; 97112-TC; 97530-TC; G0378; J0696; J1644; J1956; J2060; J3475; J7030; J7060